=== PATIENT | female | born 1980 | race Caucasian/White ===

== ENCOUNTER 2020-06-12 12:06 | Outpatient (REF) | payer OTHER, SELFPAY | END 2020-06-12 12:07 | disposition home or self-care (01) | LOC: HO.LAB 12:06 | PROVIDERS: PCP Internal Medicine; Visit Provider Internal Medicine | DX: Z20.828 Contact with and (suspected) exposure to other viral communicable diseases (principal) | CPT/HCPCS: 36415; C9803; U0003 ==

== ENCOUNTER 2022-06-15 10:45 | Emergency (ER) | payer OTHER, SELFPAY ==
--- NOTE | ~2022-06-15 | US_ITS ---
EXAMINATION: US VENOUS ULTRASOUND WITH DOPPLER LOWER EXTREMITY, LEFT CLINICAL INFORMATION: Left lower extremity pain. Family history DVT. COMPARISON: None TECHNIQUE: Ultrasound of the deep veins is performed from the hip to the calf with compression sonography and color and pulse Doppler assessment. Spectral analysis with color-flow imaging is performed. FINDINGS: There is normal venous compression and respiratory variation and augmented flow. The visualized common femoral vein, superficial femoral vein, profunda femoral vein, popliteal vein, and the trifurcation region shows no evidence of deep venous thrombosis. No popliteal fossa cyst. US/US venous duplex LE LT IMPRESSION: No DVT demonstrated in the left lower extremity.
[2022-06-15 10:49] VITALS: BP 132/79; PULSE 88; RESP 17; TEMP 36.1; O2SAT 98; BMI 31.8
--- NOTE | 2022-06-15 12:10 | ED_ITS ---
HPI - General Adult General Chief complaint: Extremity Injury, Lower Stated complaint: L leg pain no inj Time Seen by Provider: 06/15/22 12:10 Source: patient Mode of arrival: ambulatory Limitations: no limitations History of Present Illness HPI narrative: Patient is a 41 year old assigned female at with no reported medical history presenting to the emergency department today with left upper leg pain. Patient states that over the last 2 days she has had left upper leg pain. Patient denies any dizziness, lightheadedness, abdominal pain, nausea, vomiting, fever, chills, blurry vision, double vision, loss of vision, chest pain, difficulty breathing, shortness of breath, back pain, night sweats, pain with urination, increased urinary frequency, increased urinary urgency, blood in her urine or stool, syncope or a near syncopal episode, recent trauma or falls, bowel incontinence, bladder incontinence, bowel retention, bladder retention, or any other complaints at this time. Onset (ago): day(s) (2) Location: left and lower extremity Radiation: non-radiation Severity: mild Severity scale (1-10): 3 Relieving factors: none Exacerbating factors: none Associated symptoms: denies other symptoms Treatments prior to arrival: none Related Data Previous Rx's Medication Instructions Recorded cephalexin 500 mg capsule 500 mg PO Q6H 7 days #28 caps 06/15/22 prednisone 20 mg tablet 20 mg PO DAILY 7 days #7 tabs 06/15/22 Allergies Allergy/AdvReac Type Severity Reaction Status Date / Time promethazine [From PHENERGAN] Allergy Severe SEIZURES Unverified 02/22/20 19:06 Review of Systems Constitutional: Constitutional: Reports no additional constitutional complaints, Denies chills, Denies fever(s) and Denies night sweats Eyes: Eyes: Reports no additional eye complaints, Denies blurry vision, Denies change in vision, Denies diplopia, Denies eye discharge, Denies loss of vision and Denies eye pain ENT: Denies dizziness Cardiovascular: Cardiovascular: Reports no additional cardiovascular complaints, Denies chest pain, Denies lightheadedness, Denies Loss of Consciousness and Denies dyspnea Respiratory: Respiratory: Reports no additional respiratory complaints and Denies dyspnea Gastrointestinal: Gastrointestinal: Reports no additional gastrointestinal complaints, Denies abdominal pain, Denies melena, Denies hematochezia, Denies change in bowel habits and Denies change in stool character Genitourinary: Genitourinary: Denies hematuria, Denies urinary frequency, Denies dysuria, Denies urinary incontinence, Denies urinary hesitancy and Denies urinary urgency Musculoskeletal: Musculoskeletal: Reports no additional musculoskeletal complaints, Denies numbness and Denies tingling Comments: left upper leg pain Neurologic: Denies dizziness, Denies loss of vision, Denies numbness and Denies tingling Psychiatric: Psychiatric: Reports no additional psychiatric complaints Endocrine: Endocrine: Reports no additional endocrine complaints Hematologic/Lymphatic: Hematologic/Lymphatic: Reports no additional hematologic/lymphatic complaints Allergic/Immunologic: Allergic/Immunologic: Reports no additional allergic/immunologic complaints PMFSH Past Medical History Attestation statement: The following information was validated with the patient. Source: old records reviewed and nursing notes reviewed Social History Social History Advance Directives: No Advance Directives Information Provided: No Physical Exam ED Vital Signs: Vital Signs - 24 hr 06/15/22 10:49 Temperature 97 F Pulse Rate 88 Respiratory Rate 17 Blood Pressure 132/79 Pulse Oximetry 98 Oxygen Delivery Method Room Air BMI result Body Mass Index 31.8 Const General: cooperative, no acute distress, alert and awake Nutritional Appearance: well nourished Orientation/consciousness: patient oriented x3 Limitations: no limitations HENMT Head: Yes normal to inspection and Yes atraumatic Ears: hearing grossly normal bilaterally and external ears normal General nose exam: Normal external nose present, no nasal discharge noted and no epistaxis Face and sinus: Yes normal facial exam, No abrasion and No laceration Mouth: Normal oral and palatal mucosa present, no drooling and no muffled voice Eyes General: appearance normal, both eyes and all related structures Periorbital: periorbital findings normal Eyelids: Yes eyelids normal Conjunctivae: conjunctivae normal Pupils: Equal, round and reactive pupils present EOM: EOMs intact bilaterally Neck Neck: Yes normal visual inspection, Yes full ROM and Yes no lymphadenopathy Chest Chest palpation & inspection: normal inspection of the chest Resp Effort & Inspection: normal respiratory effort and able to speak in complete sentences Auscultation: clear to auscultation bilaterally Cardio Rate: regular rate Rhythm: regular rhythm GI Inspection: Yes normal to inspection Palpation (GI): Soft to palpation, not firm, nontender, no guarding and not rigid Neuro General: patient oriented x3 and moves all extremities Cranial nerves: Yes Equal, round and reactive pupils present Cognition (Neuro): normal cognition Motor exam (neuro): 5/5 motor strength present throughout Sensory Exam: Normal double simultaneous stimulation for sensation Coordination: [id number] test normal Extrem Other: pain with palpation of the medial left thigh General: Yes normal to inspection, Yes full ROM and Yes capillary refill normal Psych Appearance: grossly normal Mental Status: mental status grossly normal Affect: normal affect Attitude: cooperative Thought process: Normal thought process present Thought content: Normal thought content present Insight: Good insight present (Psych) Medical Decision Making Medical Decision Making MDM Narrative: Patient is a 41 year old assigned female at with no reported medical history presenting to the emergency department today with left upper leg pain. Patient's physical exam showed tenderness to palpation of the left upper leg but was otherwise unremarkable. Patient's left leg US showed no acute process. I explained my physical exam findings as well as all test results to the patient. I answered all questions asked by the patient. Patient's clinical presentation is most consistent with a superficial phlebitis vs. contusion - will treat with ABX and steroids. I stressed the importance of the patient taking her medication as prescribed. I stressed the importance of the patient following up with her primary care provider. I stressed the importance of the patient returning to the emergency department immediately if her symptoms were to worsen or if she were to develop any dizziness, shortness of breath, difficulty breathing, chest pain, blurry vision, loss of vision, nausea, vomiting, abdominal pain, fever, chills, back pain, or any other complaints. Patient verbalized agreement and understanding with this treatment plan and discharge. Differential Diagnosis Differential Diagnoses: The differential diagnosis associated with the presentation includes leg pain, cellulitis, phlebitis, contusion Radiology Impression Discussion of test interpretation with radiology: I have reviewed the radiologist's reading. Radiologist Impression: My interpretation is in agreement with the radiologist's impression of this imaging study. EXAMINATION:? US VENOUS ULTRASOUND WITH DOPPLER LOWER EXTREMITY, LEFT CLINICAL INFORMATION:? Left lower extremity pain. Family history DVT. COMPARISON:? None TECHNIQUE: Ultrasound of the deep veins is performed from the hip to the calf with compression sonography and color and pulse Doppler assessment. Spectral analysis with color-flow imaging is performed. FINDINGS: There is normal venous compression and respiratory variation and augmented flow. The visualized common femoral vein, superficial femoral vein, profunda femoral vein, popliteal vein, and the trifurcation region shows no evidence of deep venous thrombosis. ? No popliteal fossa cyst. US/US venous duplex LE LT IMPRESSION: No DVT demonstrated in the left lower extremity. Dictated By: Dany Tobias MD Signed By: Electronically signed by Dany Tobias MD 06/15/22 1422 Discharge Plan Discharge Clinical Impression: Acute leg pain Patient Disposition: Home, Self-Care Instructions: Leg Pain (ED) Additional Instructions: Follow up with your primary care provider. Return to the emergency department immediately if your symptoms worsen or if you develop any dizziness, shortness of breath, difficulty breathing, chest pain, blurry vision, loss of vision, nausea, vomiting, abdominal pain, fever, chills, back pain, or any other complaints. Prescriptions: New prednisone 20 mg tablet 20 mg PO DAILY 7 Days Qty: 7 0RF cephalexin 500 mg capsule 500 mg PO Q6H 7 Days Qty: 28 0RF Referrals: [facility] – [place] Family Medicine [Provider Group] (Call to establish and follow up with a primary care provider. If you already have a primary care provider, please follow up with them. ) [facility] – [place] [facility] [Provider Group] (Call to establish and follow up with a primary care provider. If you already have a primary care provider, please follow up with them. ) [facility] – [place] [facility] [Provider Group] (Call to establish and follow up with a primary care provider. If you already have a primary care provider, please follow up with them. ) Stand Alone Forms: Work/School Release Interventions: ED Discharge Assessment Last Done: 06/15/22 14:27 Discharge Date/Time: 06/15/22 14:30 Print Language: [place]
== END 2022-06-15 14:30 | disposition home or self-care (01) ==
PROVIDERS: Emergency Provider Student in an Organized Health Care Education/Training Program
DX: M79.605 Pain in left leg (principal)
CPT/HCPCS: 93971; 99283; 99284

== ENCOUNTER 2022-08-19 13:25 | Observation (INO) | payer OTHER, SELFPAY ==
--- NOTE | ~2022-08-19 | XR_ITS ---
EXAMINATION: XR CHEST CLINICAL INFORMATION: Shortness of breath. COMPARISON: None available. TECHNIQUE: 2 views of the chest were obtained. FINDINGS: No significant abnormality is noted involving the heart, lungs, mediastinum, bony thorax or soft tissues. XR/XR chest 2V IMPRESSION: No acute cardiopulmonary process.
--- NOTE | ~2022-08-19 | US_ITS ---
EXAMINATION: US PELVIS CLINICAL INFORMATION: Left-sided pelvic pain assess for torsion COMPARISON: None available. TECHNIQUE: Ultrasound of the pelvis is performed using both transabdominal and transvaginal transducers along with Doppler. Transvaginal imaging is performed due to inadequate visualization transabdominally. FINDINGS: Uterus: The uterus is anteverted and measures 7.8 x 4.4 x 6.1 cm. Endometrial thickness is 1.5 cm likely within normal limits for patient's age. There is a tiny 8 mm calcification within the myometrium more likely due to a tiny fibroid. The uterus is smooth in contour and has normal myometrial echogenicity. Adnexa: Both ovaries are visualized. There is normal color flow to the left adnexa. The right adnexa is more difficult to assess due to the location. There is no sonographic evidence for ovarian torsion. There is no pelvic ascites or fluid collection. Right ovary measures 1.5 x 2.8 x 1.7 cm. Volume 3.7 mL Left ovary measures 2.9 x 1.9 x 2.0 cm. Volume 5.8 mL. Tiny follicles US/US pelvic and transvaginal IMPRESSION: No acute abnormality seen. No evidence for ovarian torsion with bilateral normal sized ovaries..
--- NOTE | ~2022-08-19 | US_ITS ---
EXAMINATION: US ABDOMEN LIMITED CLINICAL INFORMATION: Right upper quadrant pain. COMPARISON: None available. TECHNIQUE: Real-time imaging of the right upper quadrant abdominal viscera. FINDINGS: GALLBLADDER: There is comet tail echoes seen along the inner gallbladder wall suggestive of adenomyomatosis. The gallbladder is physiologically distended without evidence of stones, sludge, polyps, wall thickening or pericholecystic fluid. COMMON BILE DUCT: Normal in caliber measuring 0.5 cm in diameter. US/US abdomen limited IMPRESSION: Gallbladder adenomyomatosis. No echogenic stones or wall thickening. Normal CBD measuring 0.56.
--- NOTE | ~2022-08-19 | CT_ITS ---
STUDY PERFORMED: CTA of the abdomen and pelvis with contrast HISTORY: Abdominal pain, evaluate for ischemic bowel. DESCRIPTION: Routine abdominal CT angiogram was performed following the administration of 80 mL of Omnipaque 350 intravenous contrast. Coronal and sagittal reformatted images were created at the acquisition workstation reviewed. The images will be reviewed and postprocessed on a dedicated 3-D workstation. COMPARISON: CT abdomen/pelvis performed earlier today at 3:54 PM. FINDINGS: Vascular: 1. Mesenteric Arteries:The celiac axis, superior mesenteric artery and inferior mesenteric artery are patent. The right hepatic artery appears to originate at the origin of the celiac trunk or directly from the aortic. 2. Renal Arteries:Due to the motion artifact, the distal aspects of the renal arteries could not be interrogated. The single renal arteries bilaterally appear to be patent proximally. 3. Infrarenal Abdominal Aorta:Normal caliber. 4. Right iliofemoral system: Visualized iliofemoral vasculature is patent. Nonvascular: Evaluation of the solid organs is limited by the early phase of intravenous contrast. LUNG BASES: No focal consolidation or pleural effusion. LIVER, GALLBLADDER, AND BILIARY TREE: Hepatomegaly measuring 18 cm craniocaudally with decreased attenuation of the parenchyma suggesting hepatic steatosis. No discrete focal liver lesion. Normal gallbladder. No biliary ductal dilatation. PANCREAS: Unremarkable. SPLEEN: Unremarkable. ADRENAL GLANDS: Unremarkable. KIDNEYS AND URETERS: Redemonstration of a Bosniak 1 cyst in the lower right kidney measuring approximately 2 cm, for which no imaging follow-up is recommended. Again noted very tiny angiomyolipoma in the lower pole of the left kidney (8:40). Symmetric nephrograms. No hydronephrosis. No perinephric fat stranding. BLADDER: Unremarkable. GASTROINTESTINAL TRACT: Small hiatal hernia with fluid distention of the esophagus. The small and large bowel are unremarkable. The appendix is unremarkable. Minimal swirling of the mesentery in the mid upper abdomen with prominent but subcentimeter short axis mesenteric lymph nodes (images 273 through 285, series 7) is unchanged, uncertain significance, no volvulus. ABDOMINAL WALL: No significant hernia is appreciated. LYMPH NODES: No lymphadenopathy. PELVIC VISCERA: Partially calcified uterine lesion in the anterior fundus, is statistically likely to represent a fibroid. No free fluid.. OSSEOUS STRUCTURES: Unremarkable. CT/CT angio abdomen pelvis IMPRESSION: VASCULAR: No acute arterial abnormalities such as dissection, high-grade stenosis or thrombosis. NONVASCULAR: 1. Hepatomegaly and hepatic steatosis. 2. Small hiatal hernia with fluid distention of the esophagus that could be seen with reflux disease. 3. No evidence to suspect mesenteric ischemia or bowel ischemia, specifically no abnormal colonic wall thickening, pneumatosis nor portal venous gas.
--- NOTE | ~2022-08-19 | CT_ITS ---
EXAMINATION: CT ABDOMEN AND PELVIS WITHOUT CONTRAST CLINICAL INFORMATION: Left-sided flank pain COMPARISON: None available. TECHNIQUE: Multidetector volumetric imaging was performed from just below the superior aspect of the liver through the pubic symphysis. Sagittal and coronal reformatted images were obtained on the technologist's workstation. This CT examination was performed using dose optimization techniques as appropriate, variously including the following: *Automated exposure control *Adjustment of mA and/or kV according to patient size (this includes techniques or standardized protocols for targeted exams where dose is matched to indication/reason for exam; i.e. extremities or head) *Use of iterative reconstruction technique DLP: 184 mGy-cm FINDINGS: LUNG BASES: The visualized lung bases are unremarkable. LIVER, GALLBLADDER, AND BILIARY TREE: The liver is enlarged with decreased attenuation consistent with hepatic steatosis. There is a focal fatty sparing around the gallbladder. The entire liver is not included on this scan. No focal hepatic lesion or biliary ductal dilatation is present. The gallbladder is unremarkable with no evidence of radiopaque gallstones, gallbladder wall thickening, or obvious pericholecystic inflammatory changes. PANCREAS: Unremarkable. SPLEEN: Unremarkable. ADRENAL GLANDS: Unremarkable. KIDNEYS AND URETERS: The kidneys are normal in size, shape, and attenuation. 2.5 cm benign Bosniak class I cyst at the lower pole the right kidney that needs no additional imaging or follow-up. There is a tiny 4 mm cortical angiomyolipoma at the lower pole left kidney, benign finding. No hydronephrosis, hydroureter, or calculi seen. No perinephric stranding. BLADDER: Unremarkable. A punctate calcification is present in the space of Retzius. GASTROINTESTINAL TRACT: The small and large bowel are unremarkable. The appendix is unremarkable. ABDOMINAL WALL: No abdominal wall hernia is seen LYMPH NODES: Normal. VASCULAR: Unremarkable. PELVIC VISCERA: The uterus and adnexa are unremarkable aside from the presence of a calcified fibroid at the fundus on the left. OSSEOUS STRUCTURES: Unremarkable. CT/CT abdomen pelvis wo IV con IMPRESSION: 1. A cause for the patient's left-sided flank pain has not been found. 2. Incidental note made of an enlarged fatty liver, tiny benign left renal angiomyolipoma and calcified uterine fibroid. Fleischner guidelines were followed.
--- NOTE | ~2022-08-19 | NM_ITS ---
Examination: Biliary scan without pharmacy. CLINICAL INDICATION:: Right upper quadrant pain. TECHNIQUE: Following intravenous administration of 5 mCi of 99m technetium mebrofenin, imaging over the right upper quadrant was obtained up to 60 minutes. At 60 minutes 1.4 mcg of CCK was administered and further imaging was obtained up to 30 minutes. FINDINGS: There is normal hepatic uptake. There is prompt visualization of gallbladder by 14 minutes. Small bowel is visualized after CCK administration approximately at 70 minutes from the beginning. Gallbladder ejection fraction at 30 minutes post-CCK injection reveals no emptying. NM/NM hepatobiliary w pharm IMPRESSION: Findings suggestive of dyskinetic gallbladder. Patent cystic duct and patent CBD. Normal hepatic uptake.
--- NOTE | ~2022-08-19 | US_ITS ---
EXAMINATION: US PELVIS CLINICAL INFORMATION: Left-sided pelvic pain assess for torsion COMPARISON: None available. TECHNIQUE: Ultrasound of the pelvis is performed using both transabdominal and transvaginal transducers along with Doppler. Transvaginal imaging is performed due to inadequate visualization transabdominally. FINDINGS: Uterus: The uterus is anteverted and measures 7.8 x 4.4 x 6.1 cm. Endometrial thickness is 1.5 cm likely within normal limits for patient's age. There is a tiny 8 mm calcification within the myometrium more likely due to a tiny fibroid. The uterus is smooth in contour and has normal myometrial echogenicity. Adnexa: Both ovaries are visualized. There is normal color flow to the left adnexa. The right adnexa is more difficult to assess due to the location. There is no sonographic evidence for ovarian torsion. There is no pelvic ascites or fluid collection. Right ovary measures 1.5 x 2.8 x 1.7 cm. Volume 3.7 mL Left ovary measures 2.9 x 1.9 x 2.0 cm. Volume 5.8 mL. Tiny follicles US/US pelvic ovarian doppler IMPRESSION: No acute abnormality seen. No evidence for ovarian torsion with bilateral normal sized ovaries..
[2022-08-19 14:06] VITALS: BP 145/89; PULSE 105; RESP 16; TEMP 36.8; O2SAT 98; BMI 24.2
--- NOTE | 2022-08-19 14:06 | ED_ITS ---
HPI - Back Pain/Injury General Chief Complaint: Back Pain/Injury <MAYITO Garcia - Last Filed: 08/19/22 14:09> Stated Complaint: L side back pain <MAYITO Garcia - Last Filed: 08/19/22 14:09> Time Seen by Provider: 08/19/22 15:02 <MAYITO Garcia - Last Filed: 08/19/22 14:09> History of Present Illness HPI Narrative: Patient complains of left-sided back pain radiating to the groin which began abruptly while she was sitting in her chair in her office, she has not had pain like this before, there is accompanied by nausea and an episode of vomiting, no fever no dysuria, no trauma no bending injury, no radiation of pain no numbness weakness or tingling, the pain is relieved by bending over There is no chest pain no shortness of breath, denies vaginal bleeding or discharge <MAYITO Montanez - Last Filed: 08/19/22 19:08> Related Data Home Medications: Previous Rx's Medication Instructions Recorded cephalexin 500 mg capsule 500 mg PO Q6H 7 days #28 caps 06/15/22 prednisone 20 mg tablet 20 mg PO DAILY 7 days #7 tabs 06/15/22 ketorolac 10 mg tablet 10 mg PO TID PRN pain 5 days #15 08/19/22 tabs morphine 15 mg immediate release 15 mg PO Q6H PRN pain 5 days #10 08/19/22 tablet tabs <MAYITO Garcia - Last Filed: 08/19/22 14:09> Allergies/Adverse Reactions: Allergies Allergy/AdvReac Type Severity Reaction Status Date / Time promethazine [From PHENERGAN] Allergy Severe SEIZURES Verified 08/19/22 14:06 <MAYITO Garcia Last Filed: 08/19/22 14:09> [facility] Past Medical History Source: nursing notes reviewed <MAYITO Montanez - Last Filed: 08/19/22 19:08> Social History Social History: Social History Alcohol intake: current Alcohol intake frequency: holidays/special occasions only Smoked in Last 30 Days: No Use of substances other than those prescribed or required for medical reasons: No Advance Directives: No Advance Directives Information Provided: Yes <MAYITO Garcia - Last Filed: 08/19/22 14:09> Physical Exam Vital Signs: Vital Signs: Last Vital Signs Temp 98.2 F 08/19/22 23:22 Pulse 92 08/19/22 23:22 Resp 17 08/19/22 23:22 BP 110/70 08/19/22 23:22 Pulse Ox 94 08/19/22 23:22 O2 Del Method 08/19/22 23:22 BMI result Body Mass Index 24.2 <MAYITO Garcia - Last Filed: 08/19/22 14:09> Vital Signs: Last Vital Signs Temp 98.2 F 08/19/22 23:22 Pulse 92 08/19/22 23:22 Resp 17 08/19/22 23:22 BP 110/70 08/19/22 23:22 Pulse Ox 94 08/19/22 23:22 O2 Del Method 08/19/22 23:22 BMI result Body Mass Index 24.2 <MAYITO Montanez - Last Filed: 08/19/22 19:08> Vital Signs: Last Vital Signs Temp 98.2 F 08/19/22 23:22 Pulse 92 08/19/22 23:22 Resp 08/19/22 23:22 BP 110/70 08/19/22 23:22 Pulse Ox 94 08/19/22 23:22 O2 Del Method 08/19/22 23:22 BMI result Body Mass Index 24.2 <MAYITO Mccray - Last Filed: 08/20/22 00:13> General appearance is very uncomfortable writhing on the bed trying to find a comfortable position Eyes are anicteric no pallor The pharynx is clear membranes are moist Neck is supple Chest is clear There is no chest wall tenderness Heart no murmur Abdomen there is some left-sided abdomen and flank tenderness, the abdominal tenderness is low abdomen The back there is left-sided flank and CVA tenderness, no focal bony tenderness Extremities no edema no calf tenderness or swelling Skin no rash Neuro no focal deficits <MAYITO Montanez - Last Filed: 08/19/22 19:08> Course Course Course Narrative: RME-- 41 yo F w/no sig PMHx c/o L flank/left low back pain x few hours with mild suprapubic pain. Admits to assoc nausea. Denies injury or fall or hx stone. Denies hematuria/dysuria +L CVAT and L low back pain reproducible on exam. No midline spinous tenderness UA ordered <MAYITO Garcia - Last Filed: 08/19/22 14:09> RME-- 41 yo F w/no sig PMHx c/o L flank/left low back pain x few hours with mild suprapubic pain. Admits to assoc nausea. Denies injury or fall or hx stone. Denies hematuria/dysuria +L CVAT and L low back pain reproducible on exam. No midline spinous tenderness UA ordered WBC is 12.1,, platelets are 445, no other acute abnormality on CBC Chemistry no significant acute abnormalities UA is negative for infection, rbc's are 0-2, test is negative CT scan was ordered as initial thought was rule out kidney stones, it came back with no acute findings to explain the patient's left-sided abdominal and back pain Patient had intermittent pain relief with morphine but pain did return severe and unrelieved Case was discussed with Dr. aiken who came to the room and saw and evaluated the patient and recommended pelvic ultrasound to rule out ovarian torsion and look for and etiology of this abrupt onset flank and pelvic pain Patient was given a dose of dilaudid and an Ativan and more Zofran for symptom relief At 19:00 case was signed out to physician assistant auto center manager Arpita Rangel to follow results of ultrasound re-evaluate and dispo patient <MAYITO Montanez - Last Filed: 08/19/22 19:08> Reevaluation(s) Reevaluation #1: I did evaluate patient earlier, patient was still not feeling good, she was vomiting. However ring over in pain. Ultrasound was pending at that time. Patient then went to sleep for a while, I let her sleep, patient just woke up again. Patient is complaining of excruciating left-sided flank pain I did evaluate patient positive left-sided CVA tenderness, no overlying skin changes. No signs of necrotizing infection. I did notice that CT of the abdomen and pelvis was done without contrast, I do feel as though it would be beneficial to obtain a CT of the abdomen pelvis with contrast. Will also obtain complete metabolic panel that includes liver enzymes and lipase. Will obtain ESR, CRP, CPK. I did discuss this case with my attending who agrees. Patient will be moved to the main emergency department. Instead of minor care. At this time patient is still actively vomiting ordered Lakshmi Black. Patient is rocking back and forth from pain and has half a emesis bag filled with bile/vomit. <MAYITO Mccray - Last Filed: 08/20/22 00:13> Time: 23:09 <MAYITO Mccray - Last Filed: 08/20/22 00:13> Reevaluation #2: Patient continues to have nausea, vomiting and pain. Discussed case with hospitalist will admit patient for intractable vomiting, left-sided flank pain. Patient not tolerating p.o. cannot discharge her home as she feels weak, is not able to tolerate anything by mouth and is still having significant pain. CTA pending. Hospitalist aware <MAYITO Mccray - Last Filed: 08/20/22 00:13> Time: 00:12 <MAYITO Mccray - Last Filed: 08/20/22 00:13> Medications Administered Discontinued Medications Generic Name Dose Route Start Last Admin Trade Name Freq PRN Reason Stop Dose Admin Diazepam 2 mg 08/19/22 22:49 08/19/22 23:11 Diazepam 2 Mg Tablet PO 08/19/22 22:50 Not Given ONCE ONE Diphenhydramine HCl 50 mg 08/19/22 23:05 08/19/22 23:41 Diphenhydramine Hcl 50 Mg/Ml Vial IVPUSH 08/19/22 23:06 50 mg ONCE ONE Administration Hydromorphone HCl 1 mg 08/19/22 18:50 08/19/22 19:05 Hydromorphone Hcl 1 Mg/Ml Syringe IVPUSH 08/19/22 18:51 1 mg ONCE ONE Administration Protocol Hydromorphone HCl 0.5 mg 08/19/22 23:01 08/19/22 23:41 Hydromorphone Hcl 0.5 Mg/0.5 Ml Syringe IVPUSH 08/19/22 23:02 0.5 mg ONCE ONE Administration Protocol Sodium Chloride 1,000 mls @ 999 mls/hr 08/19/22 16:45 08/19/22 20:33 Ns IVCONT 08/19/22 17:45 Infused .Q1H1M KAI Infusion Iohexol 80 ml 08/19/22 23:33 08/19/22 23:34 Iohexol 350 Mg/Ml 100 Ml Infus..Btl IV 08/19/22 23:34 80 ml ONCE ONE Administration Ketorolac Tromethamine 15 mg 08/19/22 15:22 08/19/22 15:41 Ketorolac Tromethamine 15 Mg/Ml Vial IVPUSH 08/19/22 15:23 15 mg ONCE ONE Administration Lorazepam 1 mg 08/19/22 18:50 08/19/22 19:04 Lorazepam 2 Mg/Ml Vial IVPUSH 08/19/22 18:51 1 mg ONCE ONE Administration Metoclopramide HCl 10 mg 08/19/22 23:05 08/19/22 23:41 Metoclopramide Hcl 10 Mg/2 Ml Vial IVPUSH 08/19/22 23:06 10 mg ONCE ONE Administration Morphine Sulfate 4 mg 08/19/22 15:22 08/19/22 15:41 Morphine Sulfate 4 Mg/Ml Cartridge IVPUSH 08/19/22 15:23 4 mg ONCE ONE Administration Protocol Morphine Sulfate 8 mg 08/19/22 16:28 08/19/22 16:32 Morphine Sulfate 10 Mg/Ml Cartridge IVPUSH 08/19/22 16:29 8 mg ONCE ONE Administration Protocol Ondansetron HCl 4 mg 08/19/22 15:23 08/19/22 15:41 Ondansetron Hcl 4 Mg/2 Ml Vial IVPUSH 08/19/22 15:24 4 mg ONCE ONE Administration Ondansetron HCl 4 mg 08/19/22 18:59 08/19/22 19:04 Ondansetron Hcl 4 Mg/2 Ml Vial IVPUSH 08/19/22 19:00 4 mg ONCE ONE Administration <MAYITO Garcia - Last Filed: 08/19/22 14:09> Medications Administered Discontinued Medications Generic Name Dose Route Start Last Admin Trade Name Freq PRN Reason Stop Dose Admin Diazepam 2 mg 08/19/22 22:49 08/19/22 23:11 Diazepam 2 Mg Tablet PO 08/19/22 22:50 Not Given ONCE ONE Diphenhydramine HCl 50 mg 08/19/22 23:05 08/19/22 23:41 Diphenhydramine Hcl 50 Mg/Ml Vial IVPUSH 08/19/22 23:06 50 mg ONCE ONE Administration Hydromorphone HCl 1 mg 08/19/22 18:50 08/19/22 19:05 Hydromorphone Hcl 1 Mg/Ml Syringe IVPUSH 08/19/22 18:51 1 mg ONCE ONE Administration Protocol Hydromorphone HCl 0.5 mg 08/19/22 23:01 08/19/22 23:41 Hydromorphone Hcl 0.5 Mg/0.5 Ml Syringe IVPUSH 08/19/22 23:02 0.5 mg ONCE ONE Administration Protocol Sodium Chloride 1,000 mls @ 999 mls/hr 08/19/22 16:45 08/19/22 20:33 Ns IVCONT 08/19/22 17:45 Infused .Q1H1M KAI Infusion Iohexol 80 ml 08/19/22 23:33 08/19/22 23:34 Iohexol 350 Mg/Ml 100 Ml Infus..Btl IV 08/19/22 23:34 80 ml ONCE ONE Administration Ketorolac Tromethamine 15 mg 08/19/22 15:22 08/19/22 15:41 Ketorolac Tromethamine 15 Mg/Ml Vial IVPUSH 08/19/22 15:23 15 mg ONCE ONE Administration Lorazepam 1 mg 08/19/22 18:50 08/19/22 19:04 Lorazepam 2 Mg/Ml Vial IVPUSH 08/19/22 18:51 1 mg ONCE ONE Administration Metoclopramide HCl 10 mg 08/19/22 23:05 08/19/22 23:41 Metoclopramide Hcl 10 Mg/2 Ml Vial IVPUSH 08/19/22 23:06 10 mg ONCE ONE Administration Morphine Sulfate 4 mg 08/19/22 15:22 08/19/22 15:41 Morphine Sulfate 4 Mg/Ml Cartridge IVPUSH 08/19/22 15:23 4 mg ONCE ONE Administration Protocol Morphine Sulfate 8 mg 08/19/22 16:28 08/19/22 16:32 Morphine Sulfate 10 Mg/Ml Cartridge IVPUSH 08/19/22 16:29 8 mg ONCE ONE Administration Protocol Ondansetron HCl 4 mg 08/19/22 15:23 08/19/22 15:41 Ondansetron Hcl 4 Mg/2 Ml Vial IVPUSH 08/19/22 15:24 4 mg ONCE ONE Administration Ondansetron HCl 4 mg 08/19/22 18:59 08/19/22 19:04 Ondansetron Hcl 4 Mg/2 Ml Vial IVPUSH 08/19/22 19:00 4 mg ONCE ONE Administration <MAYITO Montanez - Last Filed: 08/19/22 19:08> Medications Administered Discontinued Medications Generic Name Dose Route Start Last Admin Trade Name Lilliana PRN Reason Stop Dose Admin Diazepam 2 mg 08/19/22 22:49 08/19/22 23:11 Diazepam 2 Mg Tablet PO 08/19/22 22:50 Not Given ONCE ONE Diphenhydramine HCl 50 mg 08/19/22 23:05 08/19/22 23:41 Diphenhydramine Hcl 50 Mg/Ml Vial IVPUSH 08/19/22 23:06 50 mg ONCE ONE Administration Hydromorphone HCl 1 mg 08/19/22 18:50 08/19/22 19:05 Hydromorphone Hcl 1 Mg/Ml Syringe IVPUSH 08/19/22 18:51 1 mg ONCE ONE Administration Protocol Hydromorphone HCl 0.5 mg 08/19/22 23:01 08/19/22 23:41 Hydromorphone Hcl 0.5 Mg/0.5 Ml Syringe IVPUSH 08/19/22 23:02 0.5 mg ONCE ONE Administration Protocol Sodium Chloride 1,000 mls @ 999 mls/hr 08/19/22 16:45 08/19/22 20:33 Ns IVCONT 08/19/22 17:45 Infused .Q1H1M KAI Infusion Iohexol 80 ml 08/19/22 23:33 08/19/22 23:34 Iohexol 350 Mg/Ml 100 Ml Infus..Btl IV 08/19/22 23:34 80 ml ONCE ONE Administration Ketorolac Tromethamine 15 mg 08/19/22 15:22 08/19/22 15:41 Ketorolac Tromethamine 15 Mg/Ml Vial IVPUSH 08/19/22 15:23 15 mg ONCE ONE Administration Lorazepam 1 mg 08/19/22 18:50 08/19/22 19:04 Lorazepam 2 Mg/Ml Vial IVPUSH 08/19/22 18:51 1 mg ONCE ONE Administration Metoclopramide HCl 10 mg 08/19/22 23:05 08/19/22 23:41 Metoclopramide Hcl 10 Mg/2 Ml Vial IVPUSH 08/19/22 23:06 10 mg ONCE ONE Administration Morphine Sulfate 4 mg 08/19/22 15:22 08/19/22 15:41 Morphine Sulfate 4 Mg/Ml Cartridge IVPUSH 08/19/22 15:23 4 mg ONCE ONE Administration Protocol Morphine Sulfate 8 mg 08/19/22 16:28 08/19/22 16:32 Morphine Sulfate 10 Mg/Ml Cartridge IVPUSH 08/19/22 16:29 8 mg ONCE ONE Administration Protocol Ondansetron HCl 4 mg 08/19/22 15:23 08/19/22 15:41 Ondansetron Hcl 4 Mg/2 Ml Vial IVPUSH 08/19/22 15:24 4 mg ONCE ONE Administration Ondansetron HCl 4 mg 08/19/22 18:59 08/19/22 19:04 Ondansetron Hcl 4 Mg/2 Ml Vial IVPUSH 08/19/22 19:00 4 mg ONCE ONE Administration <MAYITO Mccray - Last Filed: 08/20/22 00:13> Medical Decision Making Lab Data MDM Lab Attestation statement: I reviewed the patient's lab results. <MAYITO Montanez - Last Filed: 08/19/22 19:08> Result Diagrams: 08/19/22 15:46 08/19/22 15:46 <MAYITO Garcia - Last Filed: 08/19/22 14:09> Labs: Lab Results 08/19/22 08/19/22 08/19/22 Range/Units 14:19 14:20 15:46 WBC 12.7 H (4.8-10.8) X10*3/uL RBC 4.51 (4.20-5.50) X10*6/uL Hgb 13.4 (12.0-16.0) g/dl Hct 39.4 (37.0-47.0) % MCV 87.4 (80.0-98.0) fL MCH 29.7 (27.0-33.0) pg MCHC 34.0 (31.0-35.0) g/dl RDW 13.1 (11.0-16.0) % Plt Count 445 H (160-400) X10*3/uL MPV 9.9 (9.4-12.3) fL Immature Gran % (Auto) 0.3 (0.0-0.4) % Neut % (Auto) 86.6 H (45-73) % Lymph % (Auto) 10.0 L (20-40) % [place] % (Auto) 2.8 (2-11) % Eos % (Auto) 0.1 (0-4) % Baso % (Auto) 0.2 (0-2) % Lymph # (Auto) 1.3 (1.2-4.9) X10*3/uL [place] # (Auto) 0.4 (0.1-1.2) X10*3/uL Eos # (Auto) 0.0 (0.0-0.4) X10*3/uL Baso # (Auto) 0.0 (0.0-0.2) X10*3/uL Abs Immat Gran (auto) 0.04 H (0.00-0.03) X10*3/uL Absolute Neuts (auto) 11.0 H (2.0-8.3) x10*3/uL Absolute Nucleated RBC 0.000 (0.0-0.012) X10*3/uL Nucleated RBC % (auto) 0.0 (0.0-0.2) /100WBC Sodium (135-145) mmol/L Potassium (3.3-5.1) mmol/L Chloride (96-108) mmol/L Carbon Dioxide (22-29) mmol/L Anion Gap (12-20) BUN (9-16) mg/dL Creatinine (0.5-1.4) mg/dL Estim Creat Clear Calc Estimated GFR Random Glucose (60-115) mg/dL Calcium (8.4-10.2) mg/dL Urine Color Yellow Urine Appearance Clear Urine pH 7.0 (5.0-9.0) Ur Specific [place] 1.010 (1.005-1.025) Urine Protein Negative (Neg-Trace) mg/dL Urine Glucose (UA) Negative (Negative) mg/dL Urine Ketones Negative (Negative) mg/dL Urine Blood Negative (Negative) Urine Nitrite Negative (Negative) Ur Leukocyte Esterase Negative (Negative) Urine RBC 0-2 (0-2) /HPF Urine WBC 0-5 (0-5) /HPF Ur Squamous Epith Cells 6-10 (0-2) /HPF Urine Bacteria None Seen (None Seen) Hyaline Casts 0-2 (0-2) /LPF Urine Test NEGATIVE (NEGATIVE) 08/19/22 08/19/22 Range/Units 15:46 23:55 WBC 8.6 (4.8-10.8) X10*3/uL RBC 3.79 L (4.20-5.50) X10*6/uL Hgb 11.4 L (12.0-16.0) g/dl Hct 33.6 L (37.0-47.0) % MCV 88.7 (80.0-98.0) fL MCH 30.1 (27.0-33.0) pg MCHC 33.9 (31.0-35.0) g/dl RDW 13.2 (11.0-16.0) % Plt Count 332 D (160-400) X10*3/uL MPV 9.5 (9.4-12.3) fL Immature Gran % (Auto) 0.2 (0.0-0.4) % Neut % (Auto) 91.9 H (45-73) % Lymph % (Auto) 5.4 L (20-40) % [place] % (Auto) 2.4 (2-11) % Eos % (Auto) 0.0 (0-4) % Baso % (Auto) 0.1 (0-2) % Lymph # (Auto) 0.5 L (1.2-4.9) X10*3/uL [place] # (Auto) 0.2 (0.1-1.2) X10*3/uL Eos # (Auto) 0.0 (0.0-0.4) X10*3/uL Baso # (Auto) 0.0 (0.0-0.2) X10*3/uL Abs Immat Gran (auto) 0.02 (0.00-0.03) X10*3/uL Absolute Neuts (auto) 7.9 (2.0-8.3) x10*3/uL Absolute Nucleated RBC 0.000 (0.0-0.012) X10*3/uL Nucleated RBC % (auto) 0.0 (0.0-0.2) /100WBC Sodium 140 (135-145) mmol/L Potassium 4.3 (3.3-5.1) mmol/L Chloride 106 (96-108) mmol/L Carbon Dioxide 21 L (22-29) mmol/L Anion Gap 17 (12-20) BUN 11 (9-16) mg/dL Creatinine 0.93 (0.5-1.4) mg/dL Estim Creat Clear Calc 73.7 Estimated GFR > 60 Random Glucose 119 H (60-115) mg/dL Calcium 10.2 (8.4-10.2) mg/dL Urine Color Urine Appearance Urine pH (5.0-9.0) Ur Specific [place] (1.005-1.025) Urine Protein (Neg-Trace) mg/dL Urine Glucose (UA) (Negative) mg/dL Urine Ketones (Negative) mg/dL Urine Blood (Negative) Urine Nitrite (Negative) Ur Leukocyte Esterase (Negative) Urine RBC (0-2) /HPF Urine WBC (0-5) /HPF Ur Squamous Epith Cells (0-2) /HPF Urine Bacteria (None Seen) Hyaline Casts (0-2) /LPF Urine Test (NEGATIVE) <MAYITO Garcia - Last Filed: 08/19/22 14:09> Lab Results 08/19/22 08/19/22 08/19/22 Range/Units 14:19 14:20 15:46 WBC 12.7 H (4.8-10.8) X10*3/uL RBC 4.51 (4.20-5.50) X10*6/uL Hgb 13.4 (12.0-16.0) g/dl Hct 39.4 (37.0-47.0) % MCV 87.4 (80.0-98.0) fL MCH 29.7 (27.0-33.0) pg MCHC 34.0 (31.0-35.0) g/dl RDW 13.1 (11.0-16.0) % Plt Count 445 H (160-400) X10*3/uL MPV 9.9 (9.4-12.3) fL Immature Gran % (Auto) 0.3 (0.0-0.4) % Neut % (Auto) 86.6 H (45-73) % Lymph % (Auto) 10.0 L (20-40) % [place] % (Auto) 2.8 (2-11) % Eos % (Auto) 0.1 (0-4) % Baso % (Auto) 0.2 (0-2) % Lymph # (Auto) 1.3 (1.2-4.9) X10*3/uL [place] # (Auto) 0.4 (0.1-1.2) X10*3/uL Eos # (Auto) 0.0 (0.0-0.4) X10*3/uL Baso # (Auto) 0.0 (0.0-0.2) X10*3/uL Abs Immat Gran (auto) 0.04 H (0.00-0.03) X10*3/uL Absolute Neuts (auto) 11.0 H (2.0-8.3) x10*3/uL Absolute Nucleated RBC 0.000 (0.0-0.012) X10*3/uL Nucleated RBC % (auto) 0.0 (0.0-0.2) /100WBC Sodium (135-145) mmol/L Potassium (3.3-5.1) mmol/L Chloride (96-108) mmol/L Carbon Dioxide (22-29) mmol/L Anion Gap (12-20) BUN (9-16) mg/dL Creatinine (0.5-1.4) mg/dL Estim Creat Clear Calc Estimated GFR Random Glucose (60-115) mg/dL Calcium (8.4-10.2) mg/dL Urine Color Yellow Urine Appearance Clear Urine pH 7.0 (5.0-9.0) Ur Specific [place] 1.010 (1.005-1.025) Urine Protein Negative (Neg-Trace) mg/dL Urine Glucose (UA) Negative (Negative) mg/dL Urine Ketones Negative (Negative) mg/dL Urine Blood Negative (Negative) Urine Nitrite Negative (Negative) Ur Leukocyte Esterase Negative (Negative) Urine RBC 0-2 (0-2) /HPF Urine WBC 0-5 (0-5) /HPF Ur Squamous Epith Cells 6-10 (0-2) /HPF Urine Bacteria None Seen (None Seen) Hyaline Casts 0-2 (0-2) /LPF Urine Test NEGATIVE (NEGATIVE) 08/19/22 08/19/22 Range/Units 15:46 23:55 WBC 8.6 (4.8-10.8) X10*3/uL RBC 3.79 L (4.20-5.50) X10*6/uL Hgb 11.4 L (12.0-16.0) g/dl Hct 33.6 L (37.0-47.0) % MCV 88.7 (80.0-98.0) fL MCH 30.1 (27.0-33.0) pg MCHC 33.9 (31.0-35.0) g/dl RDW 13.2 (11.0-16.0) % Plt Count 332 D (160-400) X10*3/uL MPV 9.5 (9.4-12.3) fL Immature Gran % (Auto) 0.2 (0.0-0.4) % Neut % (Auto) 91.9 H (45-73) % Lymph % (Auto) 5.4 L (20-40) % [place] % (Auto) 2.4 (2-11) % Eos % (Auto) 0.0 (0-4) % Baso % (Auto) 0.1 (0-2) % Lymph # (Auto) 0.5 L (1.2-4.9) X10*3/uL [place] # (Auto) 0.2 (0.1-1.2) X10*3/uL Eos # (Auto) 0.0 (0.0-0.4) X10*3/uL Baso # (Auto) 0.0 (0.0-0.2) X10*3/uL Abs Immat Gran (auto) 0.02 (0.00-0.03) X10*3/uL Absolute Neuts (auto) 7.9 (2.0-8.3) x10*3/uL Absolute Nucleated RBC 0.000 (0.0-0.012) X10*3/uL Nucleated RBC % (auto) 0.0 (0.0-0.2) /100WBC Sodium 140 (135-145) mmol/L Potassium 4.3 (3.3-5.1) mmol/L Chloride 106 (96-108) mmol/L Carbon Dioxide 21 L (22-29) mmol/L Anion Gap 17 (12-20) BUN 11 (9-16) mg/dL Creatinine 0.93 (0.5-1.4) mg/dL Estim Creat Clear Calc 73.7 Estimated GFR > 60 Random Glucose 119 H (60-115) mg/dL Calcium 10.2 (8.4-10.2) mg/dL Urine Color Urine Appearance Urine pH (5.0-9.0) Ur Specific [place] (1.005-1.025) Urine Protein (Neg-Trace) mg/dL Urine Glucose (UA) (Negative) mg/dL Urine Ketones (Negative) mg/dL Urine Blood (Negative) Urine Nitrite (Negative) Ur Leukocyte Esterase (Negative) Urine RBC (0-2) /HPF Urine WBC (0-5) /HPF Ur Squamous Epith Cells (0-2) /HPF Urine Bacteria (None Seen) Hyaline Casts (0-2) /LPF Urine Test (NEGATIVE) <MAYITO Montanez - Last Filed: 08/19/22 19:08> Lab Results 08/19/22 08/19/22 08/19/22 Range/Units 14:19 14:20 15:46 WBC 12.7 H (4.8-10.8) X10*3/uL RBC 4.51 (4.20-5.50) X10*6/uL Hgb 13.4 (12.0-16.0) g/dl Hct 39.4 (37.0-47.0) % MCV 87.4 (80.0-98.0) fL MCH 29.7 (27.0-33.0) pg MCHC 34.0 (31.0-35.0) g/dl RDW 13.1 (11.0-16.0) % Plt Count 445 H (160-400) X10*3/uL MPV 9.9 (9.4-12.3) fL Immature Gran % (Auto) 0.3 (0.0-0.4) % Neut % (Auto) 86.6 H (45-73) % Lymph % (Auto) 10.0 L (20-40) % [place] % (Auto) 2.8 (2-11) % Eos % (Auto) 0.1 (0-4) % Baso % (Auto) 0.2 (0-2) % Lymph # (Auto) 1.3 (1.2-4.9) X10*3/uL [place] # (Auto) 0.4 (0.1-1.2) X10*3/uL Eos # (Auto) 0.0 (0.0-0.4) X10*3/uL Baso # (Auto) 0.0 (0.0-0.2) X10*3/uL Abs Immat Gran (auto) 0.04 H (0.00-0.03) X10*3/uL Absolute Neuts (auto) 11.0 H (2.0-8.3) x10*3/uL Absolute Nucleated RBC 0.000 (0.0-0.012) X10*3/uL Nucleated RBC % (auto) 0.0 (0.0-0.2) /100WBC Sodium (135-145) mmol/L Potassium (3.3-5.1) mmol/L Chloride (96-108) mmol/L Carbon Dioxide (22-29) mmol/L Anion Gap (12-20) BUN (9-16) mg/dL Creatinine (0.5-1.4) mg/dL Estim Creat Clear Calc Estimated GFR Random Glucose (60-115) mg/dL Calcium (8.4-10.2) mg/dL Urine Color Yellow Urine Appearance Clear Urine pH 7.0 (5.0-9.0) Ur Specific [place] 1.010 (1.005-1.025) Urine Protein Negative (Neg-Trace) mg/dL Urine Glucose (UA) Negative (Negative) mg/dL Urine Ketones Negative (Negative) mg/dL Urine Blood Negative (Negative) Urine Nitrite Negative (Negative) Ur Leukocyte Esterase Negative (Negative) Urine RBC 0-2 (0-2) /HPF Urine WBC 0-5 (0-5) /HPF Ur Squamous Epith Cells 6-10 (0-2) /HPF Urine Bacteria None Seen (None Seen) Hyaline Casts 0-2 (0-2) /LPF Urine Test NEGATIVE (NEGATIVE) 08/19/22 08/19/22 Range/Units 15:46 23:55 WBC 8.6 (4.8-10.8) X10*3/uL RBC 3.79 L (4.20-5.50) X10*6/uL Hgb 11.4 L (12.0-16.0) g/dl Hct 33.6 L (37.0-47.0) % MCV 88.7 (80.0-98.0) fL MCH 30.1 (27.0-33.0) pg MCHC 33.9 (31.0-35.0) g/dl RDW 13.2 (11.0-16.0) % Plt Count 332 D (160-400) X10*3/uL MPV 9.5 (9.4-12.3) fL Immature Gran % (Auto) 0.2 (0.0-0.4) % Neut % (Auto) 91.9 H (45-73) % Lymph % (Auto) 5.4 L (20-40) % [place] % (Auto) 2.4 (2-11) % Eos % (Auto) 0.0 (0-4) % Baso % (Auto) 0.1 (0-2) % Lymph # (Auto) 0.5 L (1.2-4.9) X10*3/uL [place] # (Auto) 0.2 (0.1-1.2) X10*3/uL Eos # (Auto) 0.0 (0.0-0.4) X10*3/uL Baso # (Auto) 0.0 (0.0-0.2) X10*3/uL Abs Immat Gran (auto) 0.02 (0.00-0.03) X10*3/uL Absolute Neuts (auto) 7.9 (2.0-8.3) x10*3/uL Absolute Nucleated RBC 0.000 (0.0-0.012) X10*3/uL Nucleated RBC % (auto) 0.0 (0.0-0.2) /100WBC Sodium 140 (135-145) mmol/L Potassium 4.3 (3.3-5.1) mmol/L Chloride 106 (96-108) mmol/L Carbon Dioxide 21 L (22-29) mmol/L Anion Gap 17 (12-20) BUN 11 (9-16) mg/dL Creatinine 0.93 (0.5-1.4) mg/dL Estim Creat Clear Calc 73.7 Estimated GFR > 60 Random Glucose 119 H (60-115) mg/dL Calcium 10.2 (8.4-10.2) mg/dL Urine Color Urine Appearance Urine pH (5.0-9.0) Ur Specific [place] (1.005-1.025) Urine Protein (Neg-Trace) mg/dL Urine Glucose (UA) (Negative) mg/dL Urine Ketones (Negative) mg/dL Urine Blood (Negative) Urine Nitrite (Negative) Ur Leukocyte Esterase (Negative) Urine RBC (0-2) /HPF Urine WBC (0-5) /HPF Ur Squamous Epith Cells (0-2) /HPF Urine Bacteria (None Seen) Hyaline Casts (0-2) /LPF Urine Test (NEGATIVE) <MAYITO Mccray - Last Filed: 08/20/22 00:13> Discharge Plan Discharge Clinical Impression: Pelvic pain, Acute flank pain <MAYITO Garcia - Last Filed: 08/19/22 14:09> Patient Disposition: Admitted As Inpatient <MAYITO Garcia - Last Filed: 08/19/22 14:09> Instructions: Pelvic Pain in Women (ED), Flank Pain (ED), Pelvic Pain (ED) <MAYITO Garcia - Last Filed: 08/19/22 14:09> Additional Instructions: Take your medications as prescribed. If you were prescribed antibiotics today, it is important that you take your medication to their entirety, do not skip any doses, do not finish them early. Follow-up with your primary care provider this week. Return to the emergency department with new or worsening symptoms. Such as fevers, chills, chest pain, shortness of breath, nausea, vomiting, dizziness, headache, vision changes, lethargy In case of emergency call 911 <MAYITO Garcia - Last Filed: 08/19/22 14:09> Prescriptions: New morphine 15 mg tablet 15 mg PO Q6H PRN (Reason: pain) 5 Days Qty: 10 0RF Rx Instructions: Partial Fill upon patient request. ketorolac 10 mg tablet 10 mg PO TID PRN (Reason: pain) 5 Days Qty: 15 0RF No Action prednisone 20 mg tablet 20 mg PO DAILY 7 Days Qty: 7 0RF cephalexin 500 mg capsule 500 mg PO Q6H 7 Days Qty: 28 0RF <MAYITO Garcia - Last Filed: 08/19/22 14:09> Referrals: Physician,Unknown J [Primary Care Provider] - 2 days <MAYITO Garcia - Last Filed: 08/19/22 14:09> Stand Alone Forms: Work/School Release <MAYITO Garcia - Last Filed: 08/19/22 14:09>
[2022-08-19 14:47] LABS: Appearance Urine Clear; Color Urine Yellow; Glucose Urine UA Negative (Negative); Leukocyte Esterase Urine Negative (Negative); Nitrite Urine Negative (Negative); Urine Blood Negative (Negative); Urine Ketones Negative (Negative); Urine Protein Negative (Neg-Trace)
[2022-08-19 14:49] LABS: UPreg QC Valid YES; Urine Pregnancy NEGATIVE (NEGATIVE)
[2022-08-19 14:50] LABS: Bacteria Urine None Seen (None Seen); Hyaline Casts Urine 0-2 /LPF (0-2); RBC Urine 0-2 /HPF (0-2); WBC Urine 0-5 /HPF (0-5)
[2022-08-19] MEDS: ondansetron HCL 4 MG/2 ML VIAL IVPUSH ×2 (15:41→19:04)
[2022-08-19] MEDS: Ketorolac Tromethamine 15 MG/ML VIAL IVPUSH (15:41)
[2022-08-19] MEDS: Morphine Sulfate 4 MG/ML CARTRIDGE IVPUSH (15:41)
[2022-08-19 15:52] LABS: MANUAL DIFF FLAG NO
[2022-08-19 15:53] LABS: Basophils Percent Auto 0.2 % (0-2); Eosinophils Percent Auto 0.1 % (0-4); Hematocrit 39.4 % (37.0-47.0); Hemoglobin 13.4 g/dl (12.0-16.0); Imm Gran Abs Auto 0.04 X10*3/uL (0.00-0.03); Imm Gran Pct Auto 0.3 % (0.0-0.4); Lymphocytes Absolute Auto 1.3 X10*3/uL (1.2-4.9); Mean Corpuscular Hemoglobin 29.7 pg (27.0-33.0); Mean Corpuscular Volume 87.4 fL (80.0-98.0); Mean Platelet Volume 9.9 fL (9.4-12.3); Monocytes Absolute Auto 0.4 X10*3/uL (0.1-1.2); Monocytes Percent Auto 2.8 % (2-11); Neutrophils Percent Auto 86.6 % (45-73); Platelet Count 445 X10*3/uL (160-400); Red Blood Count 4.51 X10*6/uL (4.20-5.50); Red Cell Distribution Width 13.1 % (11.0-16.0); White Blood Count 12.7 X10*3/uL (4.8-10.8)
[2022-08-19 16:09] LABS: Anion Gap 17 (12-20); Blood Urea Nitrogen 11 mg/dL (9-16); Calcium 10.2 mg/dL (8.4-10.2); Carbon Dioxide 21 mmol/L (22-29); Chloride 106 mmol/L (96-108); Creatinine Clr Calc Pharmacy 73.7; Estimated Glomerular Filt Rate > 60; Glucose Random 119 mg/dL (60-115); Potassium 4.3 mmol/L (3.3-5.1); Sodium 140 mmol/L (135-145)
[2022-08-19] MEDS: Morphine Sulfate 10 MG/ML CARTRIDGE 8 MG IVPUSH (16:32)
[2022-08-19 16:44] VITALS: BP 117/60; PULSE 100; RESP 16; TEMP 36.8
[2022-08-19] MEDS: 0.9 % Sodium Chloride 1,000 ML 999 ML IVCONT (16:50)
[2022-08-19] MEDS: LORazepam 2 MG/ML VIAL 1 MG IVPUSH (19:04)
[2022-08-19] MEDS: HYDROmorphone HCl 1 MG/ML SYRINGE IVPUSH (19:05)
[2022-08-19 19:57] VITALS: BP 101/60; PULSE 92; RESP 16; TEMP 36.7; O2SAT 94
--- NOTE | 2022-08-19 22:06 | PC.NURSE ---
pt resting comfortably at this time, states that she was finally able to get some sleep after her last round of pain medications. pt requested a blanket and water, call de leon within reach, provider updated, [facility]
[2022-08-19 22:13] VITALS: BP 118/69; PULSE 89; RESP 16; TEMP 36.7; O2SAT 95
--- NOTE | 2022-08-19 22:57 | PC.NURSE ---
nurse called to room pt stated that her pain is coming back as well as her nausea, pt has 1 episode of emesis with nurse at bedside, provider aware that pt wishes to discuss radiology results. pt stated that if she is discharged she does have someone that she can call for a ride home
--- NOTE | 2022-08-19 23:07 | PC.NURSE ---
pt moved to ED 16 report given to Malissa MONROY
--- NOTE | 2022-08-19 23:12 | PC.NURSE ---
valium not given to pt due to vomiting, provider aware
[2022-08-19 23:22] VITALS: BP 110/70; PULSE 92; RESP 17; TEMP 36.8; O2SAT 94
[2022-08-19] MEDS: iohexoL 350 MG/ML 100 ML INFUS..BTL 80 ML IV (23:34)
[2022-08-19] MEDS: HYDROmorphone HCl 0.5 MG/0.5 ML SYRINGE IVPUSH (23:41)
[2022-08-19] MEDS: diphenhydrAMINE HCL 50 MG/ML VIAL IVPUSH (23:41)
[2022-08-19] MEDS: Metoclopramide HCl 10 MG/2 ML VIAL IVPUSH (23:41)
[2022-08-20] LABS: Basophils Percent Auto 0.1 % (0-2); Hematocrit 33.6 % (37.0-47.0); Hemoglobin 11.4 g/dl (12.0-16.0); Imm Gran Abs Auto 0.02 X10*3/uL (0.00-0.03); Imm Gran Pct Auto 0.2 % (0.0-0.4); Lymphocytes Absolute Auto 0.5 X10*3/uL (1.2-4.9); Lymphocytes Percent Auto 5.4 % (20-40); MANUAL DIFF FLAG SCAN; Mean Corpuscular HGB Conc 33.9 g/dl (31.0-35.0); Mean Corpuscular Hemoglobin 30.1 pg (27.0-33.0); Mean Corpuscular Volume 88.7 fL (80.0-98.0); Mean Platelet Volume 9.5 fL (9.4-12.3); Monocytes Absolute Auto 0.2 X10*3/uL (0.1-1.2); Monocytes Percent Auto 2.4 % (2-11); Neutrophils Absolute Auto 7.9 x10*3/uL (2.0-8.3); Neutrophils Percent Auto 91.9 % (45-73); Platelet Count 332 X10*3/uL (160-400); Red Blood Count 3.79 X10*6/uL (4.20-5.50); Red Cell Distribution Width 13.2 % (11.0-16.0); SCAN SMEAR FLAG 1; White Blood Count 8.6 X10*3/uL (4.8-10.8)
[2022-08-20 00:16] LABS: Alanine Aminotransferase 23 U/L (0-31); Albumin Level 3.8 g/dL (3.5-5.0); Alkaline Phosphatase 60 U/L (39-117); Anion Gap 11 (12-20); Aspartate Amino Transferase 17 U/L (5-31); Bilirubin Total 0.6 mg/dL (0.0-1.0); Blood Urea Nitrogen 12 mg/dL (9-16); C Reactive Protein 3.99 mg/dL (< or = 0.50); Calcium 8.3 mg/dL (8.4-10.2); Carbon Dioxide 24 mmol/L (22-29); Chloride 107 mmol/L (96-108); Creatinine Clr Calc Pharmacy 78.8; Estimated Glomerular Filt Rate > 60; Glucose Random 165 mg/dL (60-115); Lipase 13 U/L (8-78); Potassium 4.3 mmol/L (3.3-5.1); Sodium 138 mmol/L (135-145); Total Protein 5.9 g/dL (6.5-8.0)
[2022-08-20 00:20] LABS: SLIDE REVIEW VERIFIED
--- NOTE | 2022-08-20 00:22 | P.HPHOSP_ITS ---
History of Present Illness Date of Service: 08/20/22 Chief Complaint: Nausea/vomiting This is a 41-year-old female with pertinent history of gastroesophageal reflux disease, asthma who presents to the emergency department for evaluation of nausea/vomiting/abdominal pain. Patient states she ate lettuce, bagel with tomatoes and jain for lunch. 20 minutes after she had an episode of nausea and non bloody emesis. Also had associated abdominal/flank pain, intermittent, radiated to the back and without any relieving factors. Patient felt weak and had nausea throughout the day. Also had multiple episodes of nonbloody emesis. Denies fever, chills, diarrhea, chest discomfort, palpitations, shortness of breath, changes in urinary habits. No history of trauma. No history of similar complaints in the past. In the emergency department, patient with multiple episodes of nonbloody emesis and abdominal discomfort requiring multiple p.r.n. analgesics. Review of Systems Constitutional: Constitutional: Reports lethargy and Reports malaise Cardiovascular: Cardiovascular: Reports no additional cardiovascular complaints Respiratory: Respiratory: Reports no additional respiratory complaints Gastrointestinal: Gastrointestinal: Reports abdominal pain, Reports nausea and Reports vomiting Genitourinary: Genitourinary: Reports no additional female genitourinary complaints [facility] Medical History Asthma GERD (gastroesophageal reflux disease) Functional capacity: independent ambulation Pertinent family history: No family history of CAD Social History Alcohol intake: current Alcohol intake frequency: holidays/special occasions only Smoked in Last 30 Days: No Use of substances other than those prescribed or required for medical reasons: No Advance Directives: No Advance Directives Information Provided: Yes Meds Allergies Allergy/AdvReac Type Severity Reaction Status Date / Time promethazine [From PHENERGAN] Allergy Severe SEIZURES Verified 08/19/22 14:06 Active Medications: Current Medications Pharmacy Consult (Consult Rx Perform Med Rec) 1 each MISCELLANE ONCE PRN PRN Reason: Consult order Physical Exam Vital Signs and Narrative: Vital Signs: Last Vital Signs Temp 98.2 F 08/19/22 23:22 Pulse 92 08/19/22 23:22 Resp 17 08/19/22 23:22 BP 110/70 08/19/22 23:22 Pulse Ox 94 08/19/22 23:22 O2 Del Method 08/19/22 23:22 BMI result Body Mass Index 24.2 Middle-aged female lying in bed in mild distress Neck supple, no JVD Regular rate and rhythm, S1-S2 heard Regular breath sounds bilaterally, no wheezing or crackles appreciated Abdomen soft nontender, no guarding, no rigidity Patient is awakens to verbal stimulus and is oriented to self, place, time and person ; no focal motor deficit Psych: Drowsy No pedal edema Results Labs 08/19/22 23:55 08/19/22 23:55 Labs: Laboratory Results - last 24 hr 08/19/22 08/19/22 08/19/22 14:19 14:20 15:46 MCV 87.4 MCH 29.7 MCHC 34.0 RDW 13.1 Plt Count 445 H MPV 9.9 Immature Gran % (Auto) 0.3 Neut % (Auto) 86.6 H Lymph % (Auto) 10.0 L [place] % (Auto) 2.8 Eos % (Auto) 0.1 Baso % (Auto) 0.2 Lymph # (Auto) 1.3 [place] # (Auto) 0.4 Eos # (Auto) 0.0 Baso # (Auto) 0.0 Abs Immat Gran (auto) 0.04 H Absolute Neuts (auto) 11.0 H Absolute Nucleated RBC 0.000 Nucleated RBC % (auto) 0.0 Smear Tech's Comments Anion Gap Estim Creat Clear Calc Estimated GFR Random Glucose Calcium Total Bilirubin AST ALT Alkaline Phosphatase Total Creatine Kinase C-Reactive Protein Total Protein Albumin Lipase Urine Color Yellow Urine Appearance Clear Urine pH 7.0 Ur Specific [place] 1.010 Urine Protein Negative Urine Glucose (UA) Negative Urine Ketones Negative Urine Blood Negative Urine Nitrite Negative Ur Leukocyte Esterase Negative Urine RBC 0-2 Urine WBC 0-5 Ur Squamous Epith Cells 6-10 Urine Bacteria None Seen Hyaline Casts 0-2 Urine Test NEGATIVE 08/19/22 08/19/22 08/19/22 15:46 23:55 23:55 MCV 88.7 MCH 30.1 MCHC 33.9 RDW 13.2 Plt Count 332 D MPV 9.5 Immature Gran % (Auto) 0.2 Neut % (Auto) 91.9 H Lymph % (Auto) 5.4 L [place] % (Auto) 2.4 Eos % (Auto) 0.0 Baso % (Auto) 0.1 Lymph # (Auto) 0.5 L [place] # (Auto) 0.2 Eos # (Auto) 0.0 Baso # (Auto) 0.0 Abs Immat Gran (auto) 0.02 Absolute Neuts (auto) 7.9 Absolute Nucleated RBC 0.000 Nucleated RBC % (auto) 0.0 Smear Tech's Comments VERIFIED Anion Gap 17 11 L Estim Creat Clear Calc 73.7 78.8 Estimated GFR > 60 > 60 Random Glucose 119 H 165 H Calcium 10.2 8.3 L D Total Bilirubin 0.6 AST 17 ALT 23 Alkaline Phosphatase 60 Total Creatine Kinase 57 C-Reactive Protein 3.99 H Total Protein 5.9 L Albumin 3.8 Lipase 13 Urine Color Urine Appearance Urine pH Ur Specific [place] Urine Protein Urine Glucose (UA) Urine Ketones Urine Blood Urine Nitrite Ur Leukocyte Esterase Urine RBC Urine WBC Ur Squamous Epith Cells Urine Bacteria Hyaline Casts Urine Test Imaging Radiologist's Impressions: Impressions Abdomen/Pelvis CT 08/19/22 15:57 IMPRESSION: 1. A cause for the patient's left-sided flank pain has not been found. 2. Incidental note made of an enlarged fatty liver, tiny benign left renal angiomyolipoma and calcified uterine fibroid. Fleischner guidelines were followed. Doppler Study Ultrasound 08/19/22 19:41 IMPRESSION: No acute abnormality seen. No evidence for ovarian torsion with bilateral normal sized ovaries.. Pelvic/Transvag US 08/19/22 19:41 IMPRESSION: No acute abnormality seen. No evidence for ovarian torsion with bilateral normal sized ovaries.. Abdomen/Pelvis CTA 08/19/22 23:53 IMPRESSION: VASCULAR: No acute arterial abnormalities such as dissection, high-grade stenosis or thrombosis. NONVASCULAR: 1. Hepatomegaly and hepatic steatosis. 2. Small hiatal hernia with fluid distention of the esophagus that could be seen with reflux disease. 3. No evidence to suspect mesenteric ischemia or bowel ischemia, specifically no abnormal colonic wall thickening, pneumatosis nor portal venous gas. Assessment and Plan (1) Nausea and vomiting: Status: Acute Plan This is a 41-year-old female with pertinent history of gastroesophageal reflux disease, asthma who presents to the emergency department for evaluation of nausea/vomiting/abdominal pain. #. Intractable nausea and vomiting with flank pain: Likely gastroenteritis. Resuscitating with IV crystalloids. Symptomatic management. CT abdomen/pelvis, pelvic ultrasound, Doppler U.S. and CTA abdomen/pelvis negative for acute abnormality. Admits vaping but denies smoking marijuana. UDS pending. Full liquid diet and advance as tolerated. #. Asthma: No exacerbation admission. Continue home inhaler DVT prophylaxis: Lovenox 40 mg daily Full code Full liquid diet. Advance as tolerated Time Spent With Patient Time: Total time managing care of this patient today ____ minutes. Quality Stroke Does the patient have a stroke diagnosis?: No VTE Prior VTE?: No VTE Risk Level:: Medical - moderate - high VTE Device Contraindication: Treatment Not Indicated VTE Drug Contraindication: N/A - Med Ordered
[2022-08-20] MEDS: 0.9 % Sodium Chloride 1,000 ML 999 ML IV (00:29)
[2022-08-20 00:32] VITALS: BP 109/76; PULSE 96; RESP 18; TEMP 36.7; O2SAT 96
[2022-08-20 00:41] LABS: Erythrocyte Sedimentation Rate 7 MM/HR (0-20)
[2022-08-20 00:55] LABS: COVID-19 Test Negative (Negative); IDNOW Serial# 6674DD1D
[2022-08-20 01:01] LABS: IDNOW Serial# 08D9AD1C; Influenza A Negative (Negative); Influenza B2 Negative (Negative)
[2022-08-20] MEDS: Famotidine/PF 20 MG/2 ML VIAL IVPUSH (01:03)
[2022-08-20] MEDS: Enoxaparin Sodium 40 MG/0.4 ML SYRINGE SUBCUT (01:03)
--- NOTE | 2022-08-20 01:14 | PC.NURSE ---
report called to multimedia authoring specialist
[2022-08-20 02:05] VITALS: BP 122/66; PULSE 66; RESP 18; TEMP 36.4; O2SAT 99
[2022-08-20 06:27] LABS: MANUAL DIFF FLAG NO
[2022-08-20 06:30] LABS: Basophils Percent Auto 0.2 % (0-2); Hematocrit 32.4 % (37.0-47.0); Hemoglobin 10.9 g/dl (12.0-16.0); Imm Gran Abs Auto 0.02 X10*3/uL (0.00-0.03); Imm Gran Pct Auto 0.3 % (0.0-0.4); Lymphocytes Absolute Auto 0.9 X10*3/uL (1.2-4.9); Lymphocytes Percent Auto 13.1 % (20-40); Mean Corpuscular HGB Conc 33.6 g/dl (31.0-35.0); Mean Corpuscular Hemoglobin 30.1 pg (27.0-33.0); Mean Corpuscular Volume 89.5 fL (80.0-98.0); Mean Platelet Volume 10.3 fL (9.4-12.3); Monocytes Absolute Auto 0.2 X10*3/uL (0.1-1.2); Monocytes Percent Auto 3.5 % (2-11); Neutrophils Absolute Auto 5.5 x10*3/uL (2.0-8.3); Neutrophils Percent Auto 82.9 % (45-73); Platelet Count 325 X10*3/uL (160-400); Red Blood Count 3.62 X10*6/uL (4.20-5.50); Red Cell Distribution Width 13.3 % (11.0-16.0); White Blood Count 6.6 X10*3/uL (4.8-10.8)
[2022-08-20 06:54] LABS: Anion Gap 13 (12-20); Blood Urea Nitrogen 11 mg/dL (9-16); Calcium 8.2 mg/dL (8.4-10.2); Carbon Dioxide 23 mmol/L (22-29); Chloride 109 mmol/L (96-108); Creatinine Clr Calc Pharmacy 80.7; Estimated Glomerular Filt Rate > 60; Glucose Random 93 mg/dL (60-115); Potassium 4.6 mmol/L (3.3-5.1); Sodium 140 mmol/L (135-145)
[2022-08-20 08:00] VITALS: BP 118/74; PULSE 94; RESP 18; TEMP 37.2; O2SAT 97
--- NOTE | 2022-08-20 08:42 | MHC.CM.PN ---
[employer] DELIVERED PT LIVES IN [address] WITH 3 CHILDREN. INDEPENDENT AT BASELINE. EMPLOYED F/T. +HCP (COPY AT HOME) + COVID [facility] X2 PCP AT . DP: HOME, NO SERVICES ANTICIPATED. FAMILY WILL TRANSPORT AT [place]. CM WILL CONTINUE TO FOLLOW
--- NOTE | 2022-08-20 08:50 | PHA.MEDREC ---
Pharmacy Consult ? Medication Reconciliation Pharmacy has completed the medication reconciliation. Med rec complete based on conversation with patient.
[2022-08-20] MEDS: 0.9 % Sodium Chloride Flush 3 ML SYRINGE IVFLUSH ×2 (09:11→17:03)
[2022-08-20] MEDS: ondansetron HCL 4 MG/2 ML VIAL IVPUSH ×2 (09:11→17:35)
[2022-08-20] MEDS: Morphine Sulfate 4 MG/ML CARTRIDGE IVPUSH ×4 (10:12→21:01)
--- NOTE | 2022-08-20 12:05 | HO.PM.IMPN ---
Subjective Subjective Date of Service: 08/20/22 Interval History: Right upper quadrant pain improved but still present. Remains NPO Review of Systems Denies chest pain Denies shortness of breath Denies vomiting diarrhea ; admits nausea Denies fever chills Physical Exam Vital Signs: Vital Signs: Last Vital Signs Temp 98.9 F 08/20/22 08:00 Pulse 94 08/20/22 08:00 Resp 18 08/20/22 08:00 BP 118/74 08/20/22 08:00 Pulse Ox 97 08/20/22 08:00 O2 Del Method 08/20/22 08:00 BMI result Body Mass Index 24.2 Const: Other: Awake alert uncomfortable looking lying in the bed Resp: Other: Clear to auscultation bilaterally no rales rhonchi or wheezes Cardio: Other: No S4; positive S1-S2; no S3 murmurs rubs or gallops GI: Other: Tender right upper quadrant without rebound or guarding. Quiet bowel sounds Extrem: Other: No edema bilaterally Objective Data Active Medications Acetaminophen (Acetaminophen 325 Mg Tablet) 650 mg PO Q6H PRN PRN Reason: Pain, Mild (Pain Scale 1-3) Enoxaparin Sodium (Enoxaparin Sodium 40 Mg/0.4 Ml Syringe) 40 mg SUBCUT Q24H [facility] Last Admin: 08/20/22 01:03 Dose: 40 mg Documented By: LIV Lactated Ringer's (Lr) 1,000 mls @ 125 mls/hr IVCONT .Q8H [facility]AI Melatonin (Melatonin 3 Mg Tablet) 6 mg PO BEDTIME PRN PRN Reason: Insomnia Morphine Sulfate (Morphine Sulfate 4 Mg/Ml Cartridge) 4 mg IVPUSH Q3H PRN; Protocol PRN Reason: Pain, Moderate (Pain Scale 4-6 Last Admin: 08/20/22 10:12 Dose: 4 mg Documented By: PITA Ondansetron HCl (Ondansetron Hcl 4 Mg/2 Ml Vial) 4 mg IVPUSH Q8H PRN PRN Reason: Nausea and Vomiting Last Admin: 08/20/22 09:11 Dose: 4 mg Documented By: PITA Pharmacy Consult (Consult Rx Perform Med Rec) 1 each MISCELLANE ONCE PRN PRN Reason: Consult order Sodium Chloride (0.9 % Sodium Chloride Flush 3 Ml Syringe) 3 ml IVFLUSH QSHIFT [facility] Last Admin: 08/20/22 09:11 Dose: 3 ml Documented By: PITA Labs 08/20/22 05:11 08/20/22 05:11 Labs: Laboratory Results - last 24 hr 08/19/22 08/19/22 08/19/22 14:19 14:20 15:46 MCV 87.4 MCH 29.7 MCHC 34.0 RDW 13.1 Plt Count 445 H MPV 9.9 Immature Gran % (Auto) 0.3 Neut % (Auto) 86.6 H Lymph % (Auto) 10.0 L [place] % (Auto) 2.8 Eos % (Auto) 0.1 Baso % (Auto) 0.2 Lymph # (Auto) 1.3 [place] # (Auto) 0.4 Eos # (Auto) 0.0 Baso # (Auto) 0.0 Abs Immat Gran (auto) 0.04 H Absolute Neuts (auto) 11.0 H Absolute Nucleated RBC 0.000 Nucleated RBC % (auto) 0.0 Smear Tech's Comments ESR Anion Gap Estim Creat Clear Calc Estimated GFR Random Glucose Calcium Total Bilirubin AST ALT Alkaline Phosphatase Total Creatine Kinase C-Reactive Protein Total Protein Albumin Lipase Urine Color Yellow Urine Appearance Clear Urine pH 7.0 Ur Specific [place] 1.010 Urine Protein Negative Urine Glucose (UA) Negative Urine Ketones Negative Urine Blood Negative Urine Nitrite Negative Ur Leukocyte Esterase Negative Urine RBC 0-2 Urine WBC 0-5 Ur Squamous Epith Cells 6-10 Urine Bacteria None Seen Hyaline Casts 0-2 Urine Test NEGATIVE COVID-19 (BARB) COVID-19 Clin Com Influenza Type A (FUAD) Influenza Type B (FUAD) Influenza A & B Note 08/19/22 08/19/22 08/19/22 15:46 23:55 23:55 MCV MCH MCHC RDW Plt Count MPV Immature Gran % (Auto) Neut % (Auto) Lymph % (Auto) [place] % (Auto) Eos % (Auto) Baso % (Auto) Lymph # (Auto) [place] # (Auto) Eos # (Auto) Baso # (Auto) Abs Immat Gran (auto) Absolute Neuts (auto) Absolute Nucleated RBC Nucleated RBC % (auto) Smear Tech's Comments ESR 7 Anion Gap 17 11 L Estim Creat Clear Calc 73.7 78.8 Estimated GFR > 60 > 60 Random Glucose 119 H 165 H Calcium 10.2 8.3 L D Total Bilirubin 0.6 AST 17 ALT 23 Alkaline Phosphatase 60 Total Creatine Kinase 57 C-Reactive Protein 3.99 H Total Protein 5.9 L Albumin 3.8 Lipase 13 Urine Color Urine Appearance Urine pH Ur Specific [place] Urine Protein Urine Glucose (UA) Urine Ketones Urine Blood Urine Nitrite Ur Leukocyte Esterase Urine RBC Urine WBC Ur Squamous Epith Cells Urine Bacteria Hyaline Casts Urine Test COVID-19 (BARB) COVID-19 Clin Com Influenza Type A (FUAD) Influenza Type B (FUAD) Influenza A & B Note 08/19/22 08/20/22 08/20/22 23:55 00:32 00:32 MCV 88.7 MCH 30.1 MCHC 33.9 RDW 13.2 Plt Count 332 D MPV 9.5 Immature Gran % (Auto) 0.2 Neut % (Auto) 91.9 H Lymph % (Auto) 5.4 L [place] % (Auto) 2.4 Eos % (Auto) 0.0 Baso % (Auto) 0.1 Lymph # (Auto) 0.5 L [place] # (Auto) 0.2 Eos # (Auto) 0.0 Baso # (Auto) 0.0 Abs Immat Gran (auto) 0.02 Absolute Neuts (auto) 7.9 Absolute Nucleated RBC 0.000 Nucleated RBC % (auto) 0.0 Smear Tech's Comments VERIFIED ESR Anion Gap Estim Creat Clear Calc Estimated GFR Random Glucose Calcium Total Bilirubin AST ALT Alkaline Phosphatase Total Creatine Kinase C-Reactive Protein Total Protein Albumin Lipase Urine Color Urine Appearance Urine pH Ur Specific [place] Urine Protein Urine Glucose (UA) Urine Ketones Urine Blood Urine Nitrite Ur Leukocyte Esterase Urine RBC Urine WBC Ur Squamous Epith Cells Urine Bacteria Hyaline Casts Urine Test COVID-19 (BARB) Negative COVID-19 Clin Com See Note Influenza Type A (FUAD) Negative Influenza Type B (FUAD) Negative Influenza A & B Note See Note 08/20/22 08/20/22 05:11 05:11 MCV 89.5 MCH 30.1 MCHC 33.6 RDW 13.3 Plt Count 325 MPV 10.3 Immature Gran % (Auto) 0.3 Neut % (Auto) 82.9 H Lymph % (Auto) 13.1 L [place] % (Auto) 3.5 Eos % (Auto) 0.0 Baso % (Auto) 0.2 Lymph # (Auto) 0.9 L [place] # (Auto) 0.2 Eos # (Auto) 0.0 Baso # (Auto) 0.0 Abs Immat Gran (auto) 0.02 Absolute Neuts (auto) 5.5 Absolute Nucleated RBC 0.000 Nucleated RBC % (auto) 0.0 Smear Tech's Comments ESR Anion Gap 13 Estim Creat Clear Calc 80.7 Estimated GFR > 60 Random Glucose 93 Calcium 8.2 L Total Bilirubin AST ALT Alkaline Phosphatase Total Creatine Kinase C-Reactive Protein Total Protein Albumin Lipase Urine Color Urine Appearance Urine pH Ur Specific [place] Urine Protein Urine Glucose (UA) Urine Ketones Urine Blood Urine Nitrite Ur Leukocyte Esterase Urine RBC Urine WBC Ur Squamous Epith Cells Urine Bacteria Hyaline Casts Urine Test COVID-19 (BARB) COVID-19 Clin Com Influenza Type A (FUAD) Influenza Type B (FUAD) Influenza A & B Note Assessment and Plan (1) Adenomyomatosis of gallbladder: Status: Acute (2) Asthma: Status: Acute Plan 41-year-old female presents with nausea vomiting and right upper quadrant pain after eating a fatty same which. Ultrasound demonstrated gallbag adnenomyomatosis. 1.Gallbag adenomyomatosis -confirmed by RUQ ultrasound -continue NPO status until pain-free; supplemental IV fluids -consult surgery 2. Asthma -no acute issues is hospitalization Full code Lovenox Patient requires ongoing hospitalization given NPO status/need for IV fluids. Time Spent With Patient Time: Total time managing care of this patient today ____ minutes. Quality Stroke Does the patient have a stroke diagnosis?: No VTE Prior VTE?: No VTE Risk Level:: Medical - moderate - high VTE Device Contraindication: Treatment Not Indicated VTE Drug Contraindication: N/A - Med Ordered
[2022-08-20] MEDS: Lactated Ringers 1,000 ML 125 ML IVCONT ×2 (12:41→20:52)
--- NOTE | 2022-08-20 14:43 | P.CONGS_ITS ---
History of Present Illness Consult details Consult date: 08/20/22 Reason for consult: other (gallbladder adenomyomatosis) Requesting physician: Chris Trujillo Narrative: 41 year old female who presented to the ED for severe left flank/back pain. She reports she ate lettuce wrap with jain and cheese and developed mild stomach discomfort and then vomited multiple times. She reports she then lied down and the left flank/back pain began. The pain was so severe she could not lie on her back. There were no alleviating factors. She continued to vomit and had diarrhea. The pain persisted and she came to the ED. She had a CT scan abd/pelvis, CTA abdomen, pelvic US, doppler US which was unrevealing for acute pathology. She was admitted to the hospitalist service for further treatment of her intractable pain and vomiting. She reports she feels a little better with pain meds and antiemetics. The pain is still in the left flank/back. She denies any abdominal pain. She denies previous episodes of similar pain. Review of Systems Constitutional: Constitutional: Denies chills and Denies fever(s) ENT: Denies dizziness Cardiovascular: Cardiovascular: Denies chest pain, Denies palpitations and Reports dyspnea Respiratory: Respiratory: Reports dyspnea Gastrointestinal: Gastrointestinal: Reports as per HPI, Denies melena, Denies hematochezia and Denies hematemesis Genitourinary: Genitourinary: Denies hematuria and Denies dysuria Integumentary/Breasts: Skin/Breast: Denies rash and Denies jaundice Neurologic: Denies confusion and Denies dizziness Psychiatric: Psychiatric: Denies confusion Endocrine: Endocrine: Denies palpitations [facility] Past Medical History Medical History (Updated 08/20/22 @ 15:12 by Jennifer Garcia PA-C) Asthma Barretts esophagus GERD (gastroesophageal reflux disease) Functional capacity: independent ambulation Surgical History Surgical History History of delivery History of tubal ligation History of umbilical hernia repair Social History Social History Household Members: Children Housing: House Do you presently have visiting nurse or other home services: No Alcohol intake: current Alcohol intake frequency: holidays/special occasions only Patient Tobacco Use Status: Never used Tobacco service: No Current occupational status: employed Meds Allergies Allergy/AdvReac Type Severity Reaction Status Date / Time promethazine [From PHENERGAN] Allergy Severe SEIZURES Verified 08/19/22 14:06 Active Medications: Current Medications Acetaminophen (Acetaminophen 325 Mg Tablet) 650 mg PO Q6H PRN PRN Reason: Pain, Mild (Pain Scale 1-3) Enoxaparin Sodium (Enoxaparin Sodium 40 Mg/0.4 Ml Syringe) 40 mg SUBCUT Q24H [facility] Last Admin: 08/20/22 01:03 Dose: 40 mg Lactated Ringer's (Lr) 1,000 mls @ 125 mls/hr IVCONT .Q8H [facility] Last Admin: 08/20/22 12:41 Dose: 125 mls/hr Lidocaine (Lidocaine 4 % Patch Adh..Patch) 1 patch TRANSDERMA DAILY [facility]; Protocol Melatonin (Melatonin 3 Mg Tablet) 6 mg PO BEDTIME PRN PRN Reason: Insomnia Morphine Sulfate (Morphine Sulfate 4 Mg/Ml Cartridge) 4 mg IVPUSH Q3H PRN; Protocol PRN Reason: Pain, Moderate (Pain Scale 4-6 Last Admin: 08/20/22 12:40 Dose: 4 mg Ondansetron HCl (Ondansetron Hcl 4 Mg/2 Ml Vial) 4 mg IVPUSH Q8H PRN PRN Reason: Nausea and Vomiting Last Admin: 08/20/22 09:11 Dose: 4 mg Pharmacy Consult (Consult Rx Perform Med Rec) 1 each MISCELLANE ONCE PRN PRN Reason: Consult order Sodium Chloride (0.9 % Sodium Chloride Flush 3 Ml Syringe) 3 ml IVFLUSH QSHIFT [facility] Last Admin: 08/20/22 09:11 Dose: 3 ml Home Medications Medication Instructions Recorded Confirmed Last Taken Type albuterol sulfate 90 mcg/actuation 2 puff inhalation Q4-6H PRN 08/20/22 08/20/22 Unknown History aerosol inhaler (ProAir HFA) Shortness Of Breath Or Wheezing pantoprazole 40 mg tablet,delayed 40 mg PO DAILY@0630 08/20/22 08/20/22 Unknown History release valacyclovir 500 mg tablet 500 mg PO DAILY 08/20/22 08/20/22 Unknown History Physical Exam Vital Signs: Vital Signs: Last Vital Signs Temp 98.9 F 08/20/22 08:00 Pulse 94 08/20/22 08:00 Resp 18 08/20/22 08:00 BP 118/74 08/20/22 08:00 Pulse Ox 97 08/20/22 08:00 O2 Del Method 08/20/22 08:00 BMI result Body Mass Index 24.2 Const: General: no acute distress and alert; No confusion Orientat ion/consciousness: patient oriented x3 and No confusion Resp: Effort & Inspection: normal respiratory effort Cardio: Rate: regular rate GI: Inspection: Yes normal to inspection and No distended Palpation (GI): Soft to palpation, Tenderness to palpation present (GI) (very mild tenderness of upper abdomen to deep palpation) Khan's sign negative and with no rebound tenderness, no guarding and not rigid Percussion: Yes normal to percussion : General: No no CVA tenderness Back/Spine/Pelvis: Other: tenderness overlying latissimus on left Back: No no CVA tenderness Skin: General skin exam: no rashes or lesions noted Neuro: General: patient oriented x3, moves all extremities and No confusion Extrem: General: Yes no clubbing, cyanosis or edema Results Labs 08/20/22 05:11 08/20/22 05:11 Labs: Abnormal lab results 08/19/22 08/19/22 08/19/22 Range/Units 15:46 15:46 23:55 WBC 12.7 H (4.8-10.8) X10*3/uL RBC (4.20-5.50) X10*6/uL Hgb (12.0-16.0) g/dl Hct (37.0-47.0) % Plt Count 445 H (160-400) X10*3/uL Neut % (Auto) 86.6 H (45-73) % Lymph % (Auto) 10.0 L (20-40) % Lymph # (Auto) (1.2-4.9) X10*3/uL Abs Immat Gran (auto) 0.04 H (0.00-0.03) X10*3/uL Absolute Neuts (auto) 11.0 H (2.0-8.3) x10*3/uL Chloride (96-108) mmol/L Carbon Dioxide 21 L (22-29) mmol/L Anion Gap 11 L (12-20) Random Glucose 119 H 165 H (60-115) mg/dL Calcium 8.3 L D (8.4-10.2) mg/dL C-Reactive Protein 3.99 H (< or = 0.50) mg/dL Total Protein 5.9 L (6.5-8.0) g/dL 08/19/22 08/20/22 08/20/22 Range/Units 23:55 05:11 05:11 WBC (4.8-10.8) X10*3/uL RBC 3.79 L 3.62 L (4.20-5.50) X10*6/uL Hgb 11.4 L 10.9 L (12.0-16.0) g/dl Hct 33.6 L 32.4 L (37.0-47.0) % Plt Count (160-400) X10*3/uL Neut % (Auto) 91.9 H 82.9 H (45-73) % Lymph % (Auto) 5.4 L 13.1 L (20-40) % Lymph # (Auto) 0.5 L 0.9 L (1.2-4.9) X10*3/uL Abs Immat Gran (auto) (0.00-0.03) X10*3/uL Absolute Neuts (auto) (2.0-8.3) x10*3/uL Chloride 109 H (96-108) mmol/L Carbon Dioxide (22-29) mmol/L Anion Gap (12-20) Random Glucose (60-115) mg/dL Calcium 8.2 L (8.4-10.2) mg/dL C-Reactive Protein (< or = 0.50) mg/dL Total Protein (6.5-8.0) g/dL Short CBC 08/19/22 08/19/22 08/20/22 Range/Units 15:46 23:55 05:11 WBC 12.7 H 8.6 6.6 (4.8-10.8) X10*3/uL Hgb 13.4 11.4 L 10.9 L (12.0-16.0) g/dl Hct 39.4 33.6 L 32.4 L (37.0-47.0) % Plt Count 445 H 332 D 325 (160-400) X10*3/uL BMP 03/15/23 03/15/23 03/16/23 15:46 23:55 05:11 Sodium 140 138 140 Potassium 4.3 4.3 4.6 Chloride 106 107 109 H Carbon Dioxide 21 L 24 23 BUN 11 12 11 Creatinine 0.93 0.87 0.85 Calcium 10.2 8.3 L D 8.2 L Cardiac Enzymes 08/19/22 Range/Units 23:55 Total Creatine Kinase 57 (26-140) U/L Liver Function 08/19/22 Range/Units 23:55 Total Bilirubin 0.6 (0.0-1.0) mg/dL AST 17 (5-31) U/L ALT 23 (0-31) U/L Alkaline Phosphatase 60 (39-117) U/L Albumin 3.8 (3.5-5.0) g/dL Urine 08/19/22 08/19/22 Range/Units 14:19 14:20 Urine Color Yellow Urine Appearance Clear Urine pH 7.0 (5.0-9.0) Ur Specific [place] 1.010 (1.005-1.025) Urine Protein Negative (Neg-Trace) mg/dL Urine Glucose (UA) Negative (Negative) mg/dL Urine Test NEGATIVE (NEGATIVE) All other labs normal. Imaging Abdomen CT scan report/results: report reviewed and image reviewed Assessment and Plan (1) Adenomyomatosis of gallbladder: Status: Acute (2) Nausea and vomiting: Status: Acute (3) Acute flank pain: Status: Acute Plan 41 year old female who presented with nausea/vomiting left flank/back pain. CT scan abd/pelvis unrevealing. ABD US performed for ?RUQ pain which showed gallbladder adenomyomatosis without stones, wall thickening, pericholecystic fluid. US not suggestive of acute cholecystitis and her abdomen is benign with only very mild RUQ to very deep palpation. She had an initial leukocytosis which has resolved and may have been reactive secondary to vomiting. The majority of her pain is in the left flank/back. ?Muscular in nature secondary to vomiting. Can obtain HIDA scan to further evaluate GB but overall picture not suggestive of cholecystitis and currently no surgical intervention warranted. Will continue to follow. Time Spent With Patient Time: Total time managing care of this patient today ____ minutes. Procedures Date of Service Date of Service: 08/20/22
[2022-08-20 19:18] VITALS: BP 144/78; PULSE 78; RESP 18; TEMP 36.6; O2SAT 97
--- NOTE | 2022-08-20 20:59 | PC.NURSE ---
Patient vomited dinner,tolerating ice chips at present
[2022-08-21] MEDS: Enoxaparin Sodium 40 MG/0.4 ML SYRINGE SUBCUT (00:38)
[2022-08-21] MEDS: 0.9 % Sodium Chloride Flush 3 ML SYRINGE IVFLUSH ×2 (00:38→09:56)
[2022-08-21 00:49] VITALS: RESP 18
[2022-08-21] MEDS: Morphine Sulfate 4 MG/ML CARTRIDGE IVPUSH ×2 (00:49→13:36)
[2022-08-21 03:05] VITALS: BP 112/66; PULSE 70; RESP 16; TEMP 36.2; O2SAT 95
[2022-08-21] MEDS: ondansetron HCL 4 MG/2 ML VIAL IVPUSH ×2 (06:15→13:37)
[2022-08-21 07:10] LABS: MANUAL DIFF FLAG NO
[2022-08-21 07:16] LABS: Basophils Percent Auto 0.5 % (0-2); Eosinophils Absolute Auto 0.1 X10*3/uL (0.0-0.4); Eosinophils Percent Auto 2.2 % (0-4); Hematocrit 33.5 % (37.0-47.0); Imm Gran Abs Auto 0.02 X10*3/uL (0.00-0.03); Imm Gran Pct Auto 0.4 % (0.0-0.4); Lymphocytes Absolute Auto 1.4 X10*3/uL (1.2-4.9); Lymphocytes Percent Auto 26.3 % (20-40); Mean Corpuscular HGB Conc 32.8 g/dl (31.0-35.0); Mean Corpuscular Hemoglobin 29.7 pg (27.0-33.0); Mean Corpuscular Volume 90.5 fL (80.0-98.0); Mean Platelet Volume 10.3 fL (9.4-12.3); Monocytes Absolute Auto 0.4 X10*3/uL (0.1-1.2); Monocytes Percent Auto 7.7 % (2-11); Neutrophils Absolute Auto 3.5 x10*3/uL (2.0-8.3); Neutrophils Percent Auto 62.9 % (45-73); Platelet Count 319 X10*3/uL (160-400); Red Cell Distribution Width 13.2 % (11.0-16.0); White Blood Count 5.5 X10*3/uL (4.8-10.8)
[2022-08-21 07:34] LABS: Alanine Aminotransferase 20 U/L (0-31); Albumin Level 3.1 g/dL (3.5-5.0); Alkaline Phosphatase 47 U/L (39-117); Aspartate Amino Transferase 17 U/L (5-31); Bilirubin Total 0.3 mg/dL (0.0-1.0); Blood Urea Nitrogen 8 mg/dL (9-16); Calcium 8.2 mg/dL (8.4-10.2); Creatinine Clr Calc Pharmacy 76.2; Estimated Glomerular Filt Rate > 60; Glucose Fasting 82 mg/dL (60-99)
[2022-08-21 07:37] VITALS: BP 126/79; PULSE 76; RESP 16; TEMP 36.3; O2SAT 95
[2022-08-21 07:50] LABS: Anion Gap 10 (12-20); Carbon Dioxide 27 mmol/L (22-29); Chloride 109 mmol/L (96-108); Potassium 4.5 mmol/L (3.3-5.1); Sodium 141 mmol/L (135-145)
[2022-08-21] MEDS: Acetaminophen 325 MG TABLET 650 MG PO (09:55)
[2022-08-21] MEDS: Lidocaine 4 % Patch ADH..PATCH 1 PATCH TRANSDERMA (09:58)
--- NOTE | 2022-08-21 11:27 | P.PNIM_ITS ---
Subjective Subjective Date of Service: 08/21/22 Interval History: Admitted for right upper quadrant pain question gastroenteritis. Workup including right upper quadrant ultrasound and HIDA scan failed to demonstrate an abnormality. Continues to have nausea and vomiting requiring Zofran. Cannot tolerate diet Review of Systems Denies chest pain Denies shortness of breath Denies vomiting diarrhea ; admits nausea Denies fever chills Physical Exam Vital Signs: Vital Signs: Last Vital Signs Temp 97.4 F 08/21/22 07:37 Pulse 76 08/21/22 07:37 Resp 16 08/21/22 07:37 BP 126/79 08/21/22 07:37 Pulse Ox 95 08/21/22 07:37 O2 Del Method 08/21/22 07:37 BMI result Body Mass Index 24.2 Const: Other: Awake alert uncomfortable looking lying in the bed Resp: Other: Clear to auscultation bilaterally no rales rhonchi or wheezes Cardio: Other: No S4; positive S1-S2; no S3 murmurs rubs or gallops GI: Other: Tender right upper quadrant without rebound or guarding. Quiet bowel sounds Extrem: Other: No edema bilaterally Objective Data Active Medications Acetaminophen (Acetaminophen 325 Mg Tablet) 650 mg PO Q6H PRN PRN Reason: Pain, Mild (Pain Scale 1-3) Last Admin: 08/21/22 09:55 Dose: 650 mg Documented By: LUIS EDUARDO Enoxaparin Sodium (Enoxaparin Sodium 40 Mg/0.4 Ml Syringe) 40 mg SUBCUT Q24H [facility] Last Admin: 08/21/22 00:38 Dose: 40 mg Documented By: DANICA Lactated Ringer's (Lr) 1,000 mls @ 125 mls/hr IVCONT .Q8H [facility] Last Infusion: 08/21/22 05:06 Dose: 125 mls/hr Documented By: TINA Lidocaine (Lidocaine 4 % Patch Adh..Patch) 1 patch TRANSDERMA DAILY [facility]; Protocol Last Admin: 08/21/22 09:58 Dose: 1 patch Documented By: LUIS EDUARDO Melatonin (Melatonin 3 Mg Tablet) 6 mg PO BEDTIME PRN PRN Reason: Insomnia Morphine Sulfate (Morphine Sulfate 4 Mg/Ml Cartridge) 4 mg IVPUSH Q3H PRN; Protocol PRN Reason: Pain, Moderate (Pain Scale 4-6 Last Admin: 08/21/22 00:49 Dose: 4 mg Documented By: DANICA Ondansetron HCl (Ondansetron Hcl 4 Mg/2 Ml Vial) 4 mg IVPUSH Q8H PRN PRN Reason: Nausea and Vomiting Last Admin: 08/21/22 06:15 Dose: 4 mg Documented By: TINA Pharmacy Consult (Consult Rx Perform Med Rec) 1 each MISCELLANE ONCE PRN PRN Reason: Consult order Sodium Chloride (0.9 % Sodium Chloride Flush 3 Ml Syringe) 3 ml IVFLUSH QSHIFT [facility] Last Admin: 08/21/22 09:56 Dose: 3 ml Documented By: LUIS EDUARDO Labs 08/21/22 05:55 08/21/22 05:55 Labs: Laboratory Results - last 24 hr 08/21/22 08/21/22 05:55 05:55 MCV 90.5 MCH 29.7 MCHC 32.8 RDW 13.2 Plt Count 319 MPV 10.3 Immature Gran % (Auto) 0.4 Neut % (Auto) 62.9 Lymph % (Auto) 26.3 [place] % (Auto) 7.7 Eos % (Auto) 2.2 Baso % (Auto) 0.5 Lymph # (Auto) 1.4 [place] # (Auto) 0.4 Eos # (Auto) 0.1 Baso # (Auto) 0.0 Abs Immat Gran (auto) 0.02 Absolute Neuts (auto) 3.5 Absolute Nucleated RBC 0.000 Nucleated RBC % (auto) 0.0 Anion Gap 10 L Estim Creat Clear Calc 76.2 Estimated GFR > 60 Fasting Glucose 82 Calcium 8.2 L Total Bilirubin 0.3 AST 17 ALT 20 Alkaline Phosphatase 47 Total Protein 5.0 L Albumin 3.1 L Assessment and Plan (1) Adenomyomatosis of gallbladder: Status: Acute (2) Nausea and vomiting: Status: Acute (3) Asthma: Status: Acute Plan 41-year-old female presents with nausea vomiting and right upper quadrant pain after eating a fatty same which. Ultrasound demonstrated gallbag adnenomyomatosis. 1.Gallbag adenomyomatosis -confirmed by RUQ ultrasound... HIDA scan negative -continue NPO status until pain-free; supplemental IV fluids -likely gastroenteritis question food related 2. Asthma -no acute issues is hospitalization Full code Lovenox Patient requires ongoing hospitalization given NPO status/need for IV fluids. Time Spent With Patient Time: Total time managing care of this patient today ____ minutes. Quality Stroke Does the patient have a stroke diagnosis?: No VTE Prior VTE?: No VTE Risk Level:: Medical - moderate - high VTE Device Contraindication: Treatment Not Indicated VTE Drug Contraindication: N/A - Med Ordered
[2022-08-21] MEDS: Lactated Ringers 1,000 ML 125 ML IVCONT ×2 (12:03→20:28)
--- NOTE | 2022-08-21 12:21 | MHC.CM.PN ---
EMR REVIEWD AND PER MD ROUNDS, PT NOT MEDICALLY CLEARED FOR DC (UNABLE TO TOLERATE PO) CM WILL CONTINUE TO FOLLOW.
[2022-08-21] MEDS: oxyCODONE HCl Immed Release 5 MG TABLET 10 MG PO ×2 (15:45→20:36)
--- NOTE | 2022-08-21 15:47 | PC.NURSE ---
Patient c/o left shoulder pain,left back area pain,no relief from Morphine,Dr. Trujillo notified,Roxicodone administered,hot pack or comfort
[2022-08-21] MEDS: Omeprazole 20 MG CAPSULE.DR PO (15:49)
[2022-08-21 16:00] VITALS: BP 144/80; PULSE 65; RESP 16; TEMP 36.3; O2SAT 97
[2022-08-21 20:00] VITALS: BP 145/79; PULSE 70; RESP 18; TEMP 36.8; O2SAT 94
[2022-08-22] MEDS: Enoxaparin Sodium 40 MG/0.4 ML SYRINGE SUBCUT (00:31)
[2022-08-22 03:20] VITALS: BP 119/75; PULSE 67; RESP 18; TEMP 36.4; O2SAT 94
[2022-08-22] MEDS: Lactated Ringers 1,000 ML 125 ML IVCONT (04:22)
[2022-08-22 05:47] LABS: MANUAL DIFF FLAG NO
[2022-08-22 05:51] LABS: Basophils Percent Auto 0.6 % (0-2); Eosinophils Absolute Auto 0.2 X10*3/uL (0.0-0.4); Eosinophils Percent Auto 4.3 % (0-4); Hematocrit 32.6 % (37.0-47.0); Hemoglobin 10.7 g/dl (12.0-16.0); Imm Gran Abs Auto 0.01 X10*3/uL (0.00-0.03); Imm Gran Pct Auto 0.2 % (0.0-0.4); Lymphocytes Absolute Auto 1.6 X10*3/uL (1.2-4.9); Lymphocytes Percent Auto 31.5 % (20-40); Mean Corpuscular HGB Conc 32.8 g/dl (31.0-35.0); Mean Corpuscular Hemoglobin 29.5 pg (27.0-33.0); Mean Corpuscular Volume 89.8 fL (80.0-98.0); Mean Platelet Volume 10.4 fL (9.4-12.3); Monocytes Absolute Auto 0.5 X10*3/uL (0.1-1.2); Monocytes Percent Auto 9.8 % (2-11); Neutrophils Absolute Auto 2.7 x10*3/uL (2.0-8.3); Neutrophils Percent Auto 53.6 % (45-73); Platelet Count 305 X10*3/uL (160-400); Red Blood Count 3.63 X10*6/uL (4.20-5.50); Red Cell Distribution Width 12.8 % (11.0-16.0); White Blood Count 5.1 X10*3/uL (4.8-10.8)
[2022-08-22 06:09] LABS: Alanine Aminotransferase 24 U/L (0-31); Albumin Level 3.1 g/dL (3.5-5.0); Alkaline Phosphatase 48 U/L (39-117); Anion Gap 12 (12-20); Aspartate Amino Transferase 20 U/L (5-31); Bilirubin Total 0.3 mg/dL (0.0-1.0); Blood Urea Nitrogen 6 mg/dL (9-16); Calcium 8.3 mg/dL (8.4-10.2); Carbon Dioxide 26 mmol/L (22-29); Chloride 108 mmol/L (96-108); Creatinine Clr Calc Pharmacy 85.7; Estimated Glomerular Filt Rate > 60; Glucose Fasting 102 mg/dL (60-99); Potassium 4.1 mmol/L (3.3-5.1); Sodium 142 mmol/L (135-145)
[2022-08-22] MEDS: Omeprazole 20 MG CAPSULE.DR PO (06:45)
[2022-08-22 07:58] VITALS: BP 144/95; PULSE 75; RESP 18; TEMP 36.8; O2SAT 97
[2022-08-22] MEDS: Lidocaine 4 % Patch ADH..PATCH 1 PATCH TRANSDERMA (09:16)
[2022-08-22] MEDS: methylPREDNISolone Sod Succ 125 MG/2 ML VIAL IVPUSH (11:22)
[2022-08-22] MEDS: Acetaminophen 325 MG TABLET 650 MG PO (12:00)
--- NOTE | 2022-08-22 15:15 | P.DS_ITS ---
DS: Providers Provider Date of Service: 08/22/22 Date of admission: 08/20/22 00:20 Date of discharge: 08/22/22 Primary care physician: Unknown Physician Consults: 08/20/22 12:16 Consult to General Surgery Stat Consulting Provider: [facility] [place] General Surgeons Reason for consultation: RUQ pain Has provider been notified: Yes DS: Diagnosis Discharge Diagnosis (1) Adenomyomatosis of gallbladder: Status: Acute (2) Nausea and vomiting: Status: Acute (3) Asthma: Status: Acute DS: Summary Hospital Course Hospital Course: This is a 41-year-old female with pertinent history of gastroesophageal reflux disease, asthma who presents to the emergency department for evaluation of nausea/vomiting/abdominal pain.? Patient states she ate lettuce, bagel with tomatoes and jain for lunch.? 20 minutes after she had an episode of nausea and non bloody emesis.? Also had associated abdominal/flank pain, intermittent, radiated to the back and without any relieving factors.? Patient felt weak and had nausea throughout the day.? Also had multiple episodes of nonbloody emesis.? Denies fever, chills, diarrhea, chest discomfort, palpitations, shortness of breath, changes in urinary habits.? No history of trauma.? No history of similar complaints in the past. In the emergency department, patient with multiple episodes of nonbloody emesis and abdominal discomfort requiring multiple p.r.n. analgesics. Hospital Course Patient was admitted to the floor. CT of abdomen and pelvis failed to demonstrate acute pathology. Pelvic ultrasound was unremarkable. Patient underwent a right upper quadrant ultrasound which shows adenomyomatosis of the gallbladder. HIDA scan was negative. Consult placed to surgery did not feel this was an acute issue with a gall bag. Over the course of the next 48-72 hours patient improved. Thought to this presentation was musculoskeletal so the patient was given IV steroids which improved her pain. She will be discharged home complete oral taper prednisone follow-up with PCP Time Spent with Patient Time attestation: Total time managing care of this patient today ____ minutes. Discharge coordination time: Greater than 30 minutes Quality: Safe Use of Opioids Does Pt have an Active Cancer Diagnosis on the Problem List?: No Quality: Stroke Does the patient have a stroke diagnosis?: No Physical Exam Vital Signs: Vital Signs: Last Vital Signs Temp 98.2 F 08/22/22 07:58 Pulse 75 03/18/23 07:58 Resp 18 08/22/22 07:58 BP 144/95 H 08/22/22 07:58 Pulse Ox 97 08/22/22 07:58 O2 Del Method 08/22/22 07:58 BMI result Body Mass Index 24.2 Const: Other: Awake alert uncomfortable looking lying in the bed Resp: Other: Clear to auscultation bilaterally no rales rhonchi or wheezes Cardio: Other: No S4; positive S1-S2; no S3 murmurs rubs or gallops GI: Other: Tender right upper quadrant without rebound or guarding. Quiet bowel sounds Extrem: Other: No edema bilaterally DS: Data Data Completed and Pending Labs on day of discharge: Laboratory Results - last 24 hr 08/22/22 08/22/22 04:57 04:57 WBC 5.1 RBC 3.63 L Hgb 10.7 L Hct 32.6 L MCV 89.8 MCH 29.5 MCHC 32.8 RDW 12.8 Plt Count 305 MPV 10.4 Immature Gran % (Auto) 0.2 Neut % (Auto) 53.6 Lymph % (Auto) 31.5 Hyde % (Auto) 9.8 Eos % (Auto) 4.3 H Baso % (Auto) 0.6 Lymph # (Auto) 1.6 Hyde # (Auto) 0.5 Eos # (Auto) 0.2 Baso # (Auto) 0.0 Abs Immat Gran (auto) 0.01 Absolute Neuts (auto) 2.7 Absolute Nucleated RBC 0.000 Nucleated RBC % (auto) 0.0 Sodium 142 Potassium 4.1 Chloride 108 Carbon Dioxide 26 Anion Gap 12 BUN 6 L Creatinine 0.80 Estim Creat Clear Calc 85.7 Estimated GFR > 60 Fasting Glucose 102 H Calcium 8.3 L Total Bilirubin 0.3 AST 20 ALT 24 Alkaline Phosphatase 48 Total Protein 5.0 L Albumin 3.1 L Discharge Plan Discharge Anticipated Discharge Date/Time: 08/22/22 15:06 Patient Disposition: Home, Self-Care Discharge Diagnosis: Nausea and vomiting Referrals: Physician,Unknown J [Primary Care Provider] - 2 days Discharge Medications: New lidocaine [Lidocaine Pain Relief] 4 % Adhesive Patch,Medicated 1 patch transdermal DAILY Qty: 10 0RF Protocol: Apply to: Apply to: back, left side oxycodone 5 mg Tablet 10 mg PO Q3H PRN (Reason: Pain, Moderate (Pain Scale 4-6) Qty: 30 0RF Rx Instructions: Partial Fill upon patient request. prednisone 20 mg tablet See Rx Instructions .Route .COMPLEX Qty: 18 0RF Rx Instructions: 20 mg orally; 3 tabs daily for 3 days, 2 tabs daily for 3 days, 1 tab daily for 3 days Continued valacyclovir 500 mg tablet 500 mg PO DAILY pantoprazole 40 mg Tablet,Delayed Release (Dr/Ec) 40 mg PO DAILY@0630 albuterol sulfate [ProAir HFA] 90 mcg/actuation Hfa Aerosol Inhaler 2 puff INHALATION Q4-6H PRN (Reason: Shortness Of Breath Or Wheezing) Discharge Orders: Discharge Order (Routine); Ordered 08/22/22 Ordered By: Chris Trujillo Diet: Advance to usual diet Activity on Discharge: As tolerated Stand Alone Forms: Patient Portal Discharge page, Work/School Release Activity Restrictions/Additional Instructions: Take your medications as prescribed. If you were prescribed antibiotics today, it is important that you take your medication to their entirety, do not skip any doses, do not finish them early. Follow-up with your primary care provider this week. Return to the emergency department with new or worsening symptoms. Such as fevers, chills, chest pain, shortness of breath, nausea, vomiting, dizziness, headache, vision changes, lethargy In case of emergency call 911 Care Plan Goals: Take oxycodone for pain as needed. Prednisone taper as ordered Health Concerns: Use Salonpas over left upper back Plan of Treatment: Follow-up with your PCP in 2 weeks Assessment: See discharge summary Patient Instructions: Pelvic Pain in Women (ED), Flank Pain (ED), Pelvic Pain (ED)
--- NOTE | 2022-08-22 15:55 | MHC.CM.PN ---
PT WILL DC HOME TODAY WITH NO SERVICES PT TO ARRANGE TRANSPORT
[2022-08-22 16:00] VITALS: BP 160/97; PULSE 73; RESP 18; TEMP 36.8; O2SAT 96
== END 2022-08-22 17:13 | disposition home or self-care (01) ==
LOC: HO.ED 08-20 00:13 → HO.EDOVER 08-20 00:24 → HO.S3 08-20 01:04
PROVIDERS: Emergency Medicine; Physician Assistant; Physician Assistant Medical; Admitting Provider Student in an Organized Health Care Education/Training Program; Emergency Provider Internal Medicine; Visit Provider Hospitalist
DX: R11.2 Nausea with vomiting, unspecified (principal); D13.5 Benign neoplasm of extrahepatic bile ducts; R10.9 Unspecified abdominal pain; Z20.822 Contact with and (suspected) exposure to COVID-19; K76.0 Fatty (change of) liver, not elsewhere classified; D17.71 Benign lipomatous neoplasm of kidney; D25.9 Leiomyoma of uterus, unspecified; K21.9 Gastro-esophageal reflux disease without esophagitis; J45.909 Unspecified asthma, uncomplicated; K22.70 Barrett's esophagus without dysplasia
CPT/HCPCS: 36415; 71046; 74174; 74176; 76705; 76830; 76856; 78227; 80048; 80053; 81001; 81025; 82550; 83690; 85025; 85652; 86140; 87502; 87635; 93975; 96361; 96372; 96374; 96375; 96376; 99221; 99285; A9537; J1170; J1200; J1650; J1885; J2060; J2270; J2405; J2765; J2805; J2930; Q9967

== ENCOUNTER 2023-12-06 11:45 | Emergency (ER) | payer OTHER, SELFPAY ==
--- NOTE | ~2023-12-06 | XR_ITS ---
EXAMINATION: XR CHEST 2 VIEW CLINICAL INFORMATION: Cough COMPARISON: 08/22/2022 TECHNIQUE: PA and lateral views of the chest obtained. FINDINGS: The lungs are clear. There are no pleural effusions. The cardiomediastinal silhouette is normal. XR/XR chest 2V IMPRESSION: No acute cardiopulmonary disease.
[2023-12-06 12:02] VITALS: BP 151/88; PULSE 70; RESP 20; TEMP 36.8; O2SAT 98; BMI 32.7
--- NOTE | 2023-12-06 12:07 | ED_ITS ---
HPI - General Adult General Chief complaint: Upper Respiratory Symptoms Stated complaint: cough diff breathing Time Seen by Provider: 12/06/23 15:53 Source: patient Mode of arrival: ambulatory Limitations: no limitations History of Present Illness ED Provider: Amira Veras PA-C HPI narrative: Patient is a 42 year old assigned female at with a history of asthma presenting to the emergency department today with a cough, sore throat, and congestion. Patient states that over the last few days she has had a worsening cough, congestion, and sore throat. Patient denies any dizziness, lightheadedness, abdominal pain, nausea, vomiting, fever, chills, blurry vision, double vision, loss of vision, chest pain, difficulty breathing, shortness of breath, back pain, night sweats, pain with urination, increased urinary frequency, increased urinary urgency, blood in her urine or stool, syncope or a near syncopal episode, recent trauma or falls, bowel incontinence, bladder incontinence, or any other complaints at this time. Onset (ago): day(s) Severity: mild Severity scale (1-10): 4 Relieving factors: none Exacerbating factors: none Associated symptoms: cough Treatments prior to arrival: none Related Data Home Medications ?Medication ?Instructions ?Recorded ?Confirmed albuterol sulfate 90 mcg/actuation 2 puff inhalation Q4-6H PRN 08/20/22 08/20/22 aerosol inhaler (ProAir HFA) Shortness Of Breath Or Wheezing pantoprazole 40 mg tablet,delayed 40 mg PO DAILY@0630 08/20/22 08/20/22 release valacyclovir 500 mg tablet 500 mg PO DAILY 08/20/22 08/20/22 Previous Rx's ?Medication ?Instructions ?Recorded lidocaine 4 % topical patch 1 patch transdermal DAILY #10 ea 08/22/22 (Lidocaine Pain Relief) oxycodone 5 mg tablet 10 mg (2 x 5 mg) PO Q3H PRN Pain, 08/22/22 Moderate (Pain Scale 4-6 #30 tabs prednisone 20 mg tablet See Rx Instructions .Route 08/22/22 .COMPLEX #18 tabs prednisone 20 mg tablet 20 mg PO DAILY 12 days #26 tabs 12/06/23 Allergies Allergy/AdvReac Type Severity Reaction Status Date / Time promethazine [From PHENERGAN] Allergy Severe SEIZURES Verified 12/06/23 12:07 Review of Systems Constitutional: Constitutional: Reports no additional constitutional complaints, Denies chills, Denies fever(s) and Denies night sweats Eyes: Eyes: Reports no additional eye complaints, Denies blurry vision, Denies change in vision, Denies diplopia, Denies eye discharge, Denies loss of vision and Denies eye pain ENT: Denies dizziness, Reports nasal congestion and Reports sore throat Cardiovascular: Cardiovascular: Reports no additional cardiovascular complaints, Denies chest pain, Denies lightheadedness, Denies Loss of Consciousness and Denies dyspnea Respiratory: Respiratory: Reports no additional respiratory complaints, Reports cough and Denies dyspnea Gastrointestinal: Gastrointestinal: Reports no additional gastrointestinal complaints, Denies abdominal pain, Denies melena, Denies hematochezia, Denies change in bowel habits and Denies change in stool character Genitourinary: Genitourinary: Denies hematuria, Denies urinary frequency, Denies dysuria, Denies urinary incontinence, Denies urinary hesitancy and Denies urinary urgency Musculoskeletal: Musculoskeletal: Reports no additional musculoskeletal complaints, Denies numbness and Denies tingling Neurologic: Denies dizziness, Denies loss of vision, Denies numbness and Denies tingling Psychiatric: Psychiatric: Reports no additional psychiatric complaints Endocrine: Endocrine: Reports no additional endocrine complaints Hematologic/Lymphatic: Hematologic/Lymphatic: Reports no additional hematologic/lymphatic complaints Allergic/Immunologic: Allergic/Immunologic: Reports no additional allergic/immunologic complaints [facility] Past Medical History Attestation statement: The following information was validated with the patient. Source: old records reviewed and nursing notes reviewed Medical History Barretts esophagus Adenomyomatosis of gallbladder GERD (gastroesophageal reflux disease) Asthma Surgical History History of delivery History of umbilical hernia repair History of tubal ligation Social History Social History Household Members: Children Housing: House Do you presently have visiting nurse or other home services: No Alcohol intake: current Alcohol intake frequency: holidays/special occasions only Patient Tobacco Use Status: Never used Tobacco Advance Directives: No Do you have a plan to hurt others: No Plan service: No Current occupational status: employed Physical Exam ED Vital Signs: Vital Signs - 24 hr 07/01/24 12:02 12/06/23 15:49 12/06/23 16:22 Temperature 98.3 F 98.5 F Pulse Rate 70 68 85 Respiratory Rate 20 19 28 H Blood Pressure 151/88 H 120/57 L Pulse Oximetry 98 99 Oxygen Delivery Method Room Air Room Air 12/06/23 17:09 Temperature 98.4 F Pulse Rate 76 Respiratory Rate 16 Blood Pressure 120/57 L Pulse Oximetry 97 Oxygen Delivery Method Room Air BMI result Body Mass Index 32.7 Const General: cooperative, no acute distress, alert and awake Nutritional Appearance: well nourished Orientation/consciousness: patient oriented x3 Limitations: no limitations HENMT Head: Yes normal to inspection and Yes atraumatic Ears: hearing grossly normal bilaterally and external ears normal General nose exam: Normal external nose present, no nasal discharge noted and no epistaxis Face and sinus: Yes normal facial exam, No abrasion and No laceration Mouth: Normal oral and palatal mucosa present, no drooling and no muffled voice Eyes General: appearance normal, both eyes and all related structures Periorbital: periorbital findings normal Eyelids: Yes eyelids normal Conjunctivae: conjunctivae normal Pupils: Equal, round and reactive pupils present EOM: EOMs intact bilaterally Neck Neck: Yes normal visual inspection, Yes full ROM and Yes no lymphadenopathy Chest Chest palpation & inspection: normal inspection of the chest Resp Effort & Inspection: normal respiratory effort and able to speak in complete sentences GI Inspection: Yes normal to inspection Neuro General: patient oriented x3 and moves all extremities Cranial nerves: Yes Equal, round and reactive pupils present Cognition (Neuro): normal cognition Extrem General: Yes normal to inspection, Yes full ROM and Yes capillary refill normal Psych Appearance: grossly normal Mental Status: mental status grossly normal Affect: normal affect Attitude: cooperative Thought process: Normal thought process present Thought content: Normal thought content present Insight: Good insight present (Psych) Course Course Course Narrative: RME performed by Amira Veras PA-C. Patient is a 42 year old assigned female at presenting to the emergency department with a cough, congestion and sore throat. Patient states she has been sick for days. Detailed physical exam and review of systems are deferred to the information services vice president. Imaging and swabs ordered. Patient placed back in the waiting room pending room availability and results. Medications Administered Discontinued Medications Generic Name Dose Route Start Last Admin Trade Name Lilliana PRN Reason Stop Dose Admin Albuterol Sulfate 2.5 mg/ 0 mg 12/06/23 16:07 12/06/23 16:13 Albuterol/Ipratropium 3 ml INHALE 12/06/23 16:08 2.5 dose ONCE ONE Administration Methylprednisolone Sodium Succinate 60 mg 12/06/23 15:53 12/06/23 16:16 Methylprednisolone Sod Succ 125 Mg/2 Ml Vial IM 12/06/23 15:54 60 mg ONCE ONE Administration Ondansetron HCl 4 mg 12/06/23 16:25 12/06/23 16:29 Ondansetron Odt 4 Mg Tab.Rapdis TRANSLINGU 12/06/23 16:26 4 mg ONCE ONE Administration Medical Decision Making Medical Decision Making [facility] Narrative: Patient is a 42 year old assigned female at with a history of asthma presenting to the emergency department today with a cough, congestion, and sore throat. Patient's physical exam was unremarkable. Patient's chest x-ray showed no acute process. Patient's COVID-19, influenza, RSV, and strep tests were all negative. I explained my physical exam findings as well as all test results to the patient. I answered all questions asked by the patient. Patient received a breathing treatment and IM Solu-medrol which she stated helped her symptoms significantly. I stressed the importance of the patient taking her medication as directed (either prescribed or as the over the counter packaging recommends). I stressed the importance of the patient following up with her primary care provider. I stressed the importance of the patient returning to the emergency department immediately if her symptoms were to worsen or if she were to develop any dizziness, shortness of breath, difficulty breathing, chest pain, blurry vision, loss of vision, nausea, vomiting, abdominal pain, fever, chills, back pa in, or any other complaints. Patient verbalized agreement and understanding with this treatment plan and discharge. Differential Diagnosis Differential Diagnoses: The differential diagnosis associated with the presentation includes Asthma exacerbation URI Admission/Observation Consideration of admission/observation: Escalation of care including admission/observation considered Patient would have been admitted to the hospital had her work up had any fin dings where hospital admission was appropriate and her clinical presentation warranted hospital admission. Lab Data [facility] Lab Attestation statement: I reviewed the patient's lab results. My interpretation of these studies and their corresponding values is that they are grossly normal. Labs: Lab Results 12/06/23 Range/Units 12:14 Influenza Type A (PCR) NEGATIVE (Negative) Influenza Type B (PCR) NEGATIVE (Negative) RSV RNA Qual (PCR) NEGATIVE (Negative) SARS-CoV-2 RNA (RT-PCR) NEGATIVE (Negative) S. pyogenes GrpA FUAD Negative (Negative) Independent Interpretation I performed an independent interpretation of an: Plain X-Ray Interpretation: My interpretation is in agreement with the radiologist's impression of this imaging study. EXAMINATION: XR CHEST 2 VIEW CLINICAL INFORMATION: Cough COMPARISON: 08/22/2022 TECHNIQUE: PA and lateral views of the chest obtained. FINDINGS: The lungs are clear. There are no pleural effusions. The cardiomediastinal silhouette is normal. XR/XR chest 2V IMPRESSION: No acute cardiopulmonary disease. Dictated By: Gal Trinidad MD Signed By: Electronically signed by Gal Trinidad MD 12/06/23 2291 Radiology Impression Discussion of test interpretation with radiology: I have reviewed the radiologist's reading. Discharge Plan Discharge Clinical Impression: Asthma, Upper respiratory infection Patient Disposition: Home, Self-Care Instructions: Asthma (DC), Upper Respiratory Infection (DC) Additional Instructions: Follow up with your primary care provider. Return to the emergency department immediately if your symptoms worsen or if you develop any dizziness, shortness of breath, difficulty breathing, chest pain, blurry vision, loss of vision, nausea, vomiting, abdominal pain, fever, chills, back pain, or any other complaints. Prescriptions: New prednisone 20 mg tablet 20 mg PO DAILY 12 Days Qty: 26 0RF Rx Instructions: Take 3 tablets for 5 days THEN; Take 2 tablets for 4 days THEN; Take 1 tablet for 3 days No Action valacyclovir 500 mg tablet 500 mg PO DAILY pantoprazole 40 mg Tablet,Delayed Release (Dr/Ec) 40 mg PO DAILY@0630 albuterol sulfate [ProAir HFA] 90 mcg/actuation Hfa Aerosol Inhaler 2 puff INHALATION Q4-6H PRN (Reason: Shortness Of Breath Or Wheezing) lidocaine [Lidocaine Pain Relief] 4 % Adhesive Patch,Medicated 1 patch transdermal DAILY Qty: 10 0RF Protocol: Apply to: Apply to: back, left side oxycodone 5 mg Tablet 10 mg PO Q3H PRN (Reason: Pain, Moderate (Pain Scale 4-6) Qty: 30 0RF Rx Instructions: Partial Fill upon patient request. prednisone 20 mg tablet See Rx Instructions .Route .COMPLEX Qty: 18 0RF Rx Instructions: 20 mg orally; 3 tabs daily for 3 days, 2 tabs daily for 3 days, 1 tab daily for 3 days Referrals: David Reich MD [Primary Care Provider] - Stand Alone Forms: Work/School Release Interventions: ED Discharge Assessment Last Done: 12/06/23 17:09 Discharge Date/Time: 12/06/23 17:11 Print Language: Arabic
[2023-12-06 12:32] LABS: IDNOW Serial# 6674DD1D; Strep A Nucleic Acid Negative (Negative)
[2023-12-06 13:30] LABS: Influenza A PCR NEGATIVE (Negative); Influenza B PCR NEGATIVE (Negative); Resp Syncy Virus RNA Qual PCR NEGATIVE (Negative); SARS COV2 PCR INHOUSE NEGATIVE (Negative)
[2023-12-06 15:49] VITALS: BP 120/57; PULSE 68; RESP 19; TEMP 36.9; O2SAT 99
[2023-12-06] MEDS: Albuterol Sulfate 2.5 MG, Albuterol/Iprat 2.5/0.5MG 3 ML 3 ML INHALE (16:13)
[2023-12-06] MEDS: methylPREDNISolone Sod Succ 125 MG/2 ML VIAL 60 MG IM (16:16)
[2023-12-06 16:22] VITALS: PULSE 85; RESP 28
[2023-12-06] MEDS: Ondansetron ODT 4 MG TAB.RAPDIS TRANSLINGU (16:29)
[2023-12-06 17:09] VITALS: BP 120/57; PULSE 76; RESP 16; TEMP 36.9; O2SAT 97
== END 2023-12-06 17:11 | disposition home or self-care (01) ==
PROVIDERS: Physician Assistant Medical; Emergency Provider Emergency Medicine; PCP Internal Medicine
DX: J06.9 Acute upper respiratory infection, unspecified (principal); R05.9 Cough, unspecified; R06.02 Shortness of breath; J45.909 Unspecified asthma, uncomplicated; Z03.818 Encounter for observation for suspected exposure to other biological agents ruled out; Z79.899 Other long term (current) drug therapy
CPT/HCPCS: 0241U; 71046; 87651; 94640; 96372; 99284; J2919